=== PATIENT | male | born 1940 | race Caucasian/White ===

== ENCOUNTER → 2017-04-16 | Outpatient (CLI) | payer MEDICARE, OTHER | LOC: M WUC 13:35 | DX: S80.12XA Contusion of left lower leg, initial encounter (principal); S90.02XA Contusion of left ankle, initial encounter; X58.XXXA Exposure to other specified factors, initial encounter; Y92.9 Unspecified place or not applicable | CPT/HCPCS: 73590 ==

== ENCOUNTER 2017-09-22 09:57 | Inpatient (IN) | payer MEDICARE, OTHER ==
[2017-09-22] MEDS: DEXTROSE 50% 50 ML SYRINGE IV ×4 (10:23→11:49)
[2017-09-22] MEDS: fentaNYL 100 MCG/2 ML INJECTION (J3010) IV ×4 (10:36→11:29)
[2017-09-22] MEDS: NS 1,000 ML IV ×2 (10:36)
[2017-09-22 10:56] LABS: HEMATOCRIT 39.6 % (42.0-52.0); HEMOGLOBIN 13.4 g/dl (13.5-17.5); MEAN CORPUSCULAR HEMOGLOBIN 31.2 pg (27.0-33.0); MEAN CORPUSCULAR HGB CONC 33.8 g/dl (32.0-36.5); MEAN CORPUSCULAR VOLUME 92.1 fl (80.0-96.0); PLATELET COUNT, AUTOMATED 179 10^3/uL (150-450); RED CELL DISTRIBUTION WIDTH 12.8 % (11.5-14.5); WHITE BLOOD COUNT 15.2 10^3/uL (4.0-10.0)
[2017-09-22 11:02] LABS: ANION GAP 9 MEQ/L (8-16); BLOOD UREA NITROGEN 25 MG/DL (7-18); CALCIUM LEVEL 9.1 MG/DL (8.8-10.2); CARBON DIOXIDE LEVEL 27 MEQ/L (21-32); CHLORIDE LEVEL 112 MEQ/L (98-107); CK-MB VALUE MASS 3.1 NG/ML (<3.6); CPK CREATINE PHOSPHOKINASE 88 U/L (39-308); CREATININE FOR GFR 2.02 MG/DL (0.70-1.30); GLOMERULAR FILTRATION RATE 34.3 (>42); GLUCOSE, FASTING 44 MG/DL (70-100); MB/CK RELATIVE INDEX 3.52 (< OR =4); POTASSIUM SERUM 3.3 MEQ/L (3.5-5.1); SODIUM LEVEL 148 MEQ/L (136-145); TROPONIN I < 0.02 NG/ML (< 0.10)
[2017-09-22 11:09] LABS: INR 1.65; PROTHROMBIN TIME 19.8 SECONDS (12.1-14.4)
[2017-09-22 11:10] LABS: PARTIAL THROMBOPLASTIN TIME 38.8 SECONDS (25.4-37.6)
[2017-09-22] MEDS ORDERED: MIDAZOLAM INJ 5 MG/ML VIAL (J2250) As Ordered ×2 (11:18)
[2017-09-22] MEDS ORDERED: MIDAZOLAM INJ 2 MG/2 ML VIAL (J2250) As Ordered ×8 (11:20→14:10)
[2017-09-22] MEDS: MIDAZOLAM INJ 2 MG/2 ML VIAL (J2250) IV ×4 (11:29→11:34)
[2017-09-22] MEDS: ceFAZolin SOD 1 GM in D5W MINI-BAG PLUS 50 ML IV (11:45)
[2017-09-22 11:51] LABS: BEDSIDE GLUCOSE 56 MG/DL (83-110)
[2017-09-22] MEDS: D5W/0.45% SODIUM CHLORIDE 1,000 ML IV ×2 (11:58)
[2017-09-22] MEDS ORDERED: HumaLOG INSULIN (NovoLOG) PER UNIT SC ×2 (12:00)
[2017-09-22] MEDS ORDERED: DIGOXIN INJ 0.5 MG/2 ML AMP (J1160) IV ×2 (12:30)
[2017-09-22] MEDS ORDERED: KCL 20MEQ IN D5/0.45NS 1000ML 1,000 ML IV (13:00)
[2017-09-22 13:02] LABS: BEDSIDE GLUCOSE 150 MG/DL (83-110)
[2017-09-22] MEDS ORDERED: DEXTROSE 50% 50 ML SYRINGE IV ×2 (13:15)
[2017-09-22] MEDS ORDERED: GLUCAGON FOR INJ 1 MG VIAL (J1610) SC ×2 (13:15)
[2017-09-22] MEDS ORDERED: ACETAMINOPHEN TAB 650MG DOSE (2X325MG) PO ×2 (13:15)
[2017-09-22] MEDS ORDERED: ONDANSETRON 4MG/2ML VIAL (J2405) IV ×4 (13:15→16:30)
[2017-09-22] MEDS ORDERED: PERCOCET 5MG/325MG TAB PO ×2 (13:15)
[2017-09-22] MEDS ORDERED: MORPHINE 4 MG/ML 1ML VIAL/SYRINGE (J2270) IV ×4 (13:15→18:15)
[2017-09-22] MEDS ORDERED: POLYVINYL ALCOHOL OPHTH SOLN 15 ML(LIQUITEARS) OU ×2 (13:15)
[2017-09-22] MEDS ORDERED: GLUCOSE 4 GM CHEW TABLET PO ×2 (13:15)
[2017-09-22] MEDS: KCL 10MEQ/100ML SWI (KRUN) 10 MEQ in APPROPRIATE DILUENT 1 EA IV ×2 (14:00→15:00)
[2017-09-22 14:01] LABS: MAGNESIUM LEVEL 1.6 MG/DL (1.8-2.4)
[2017-09-22] MEDS: idaruCIZUmab 2.5 GM in APPROPRIATE DILUENT 1 EA IV ×2 (14:05→16:19)
[2017-09-22] MEDS ORDERED: fentaNYL 100 MCG/2 ML INJECTION (J3010) As Ordered ×2 (14:09)
[2017-09-22] MEDS ORDERED: LIDOCAINE 2% INJ 100 MG/5 ML SDV (FOR ANES.) As Ordered ×2 (14:09)
[2017-09-22] MEDS ORDERED: PROPOFOL 200 MG/20 ML VIAL As Ordered ×2 (14:09)
[2017-09-22 14:27] LABS: ESTIMATED AVERAGE GLUCOSE 154 MG/DL (60-110)
[2017-09-22 14:29] LABS: FREE THYROXINE INDEX 2.2 % (1.4-3.8); T UPTAKE 34 % (33-40); THYROID STIMULATING HORMONE 0.928 uIU/ML (0.358-3.740); THYROXINE (T4) 6.4 UG/DL (4.5-12.0)
[2017-09-22] MEDS: ceFAZolin 1GM INJ (J0690 PER 500MG) As Ordered ×4 (14:41)
[2017-09-22] MEDS ORDERED: ePHEDrine SULFATE 25 MG/5 ML(5MG/ML) SYRINGE As Ordered ×2 (15:02)
[2017-09-22] MEDS ORDERED: ONDANSETRON 4MG/2ML VIAL (J2405) As Ordered ×2 (15:13)
[2017-09-22] MEDS ORDERED: dexameTHASONE 4 MG/ML 1ML VIAL (J1100) As Ordered ×4 (15:13)
[2017-09-22 16:00] LABS: BEDSIDE GLUCOSE 234 MG/DL (83-110)
[2017-09-22] MEDS ORDERED: METOCLOPRAMIDE INJ 10MG/2ML VIAL (J2765) IV ×2 (16:30)
[2017-09-22] MEDS: LR 1,000 ML IV ×2 (16:30)
[2017-09-22] MEDS ORDERED: fentaNYL 100 MCG/2 ML INJECTION (J3010) IV ×2 (16:30)
[2017-09-22] MEDS ORDERED: MEPERIDINE INJ 25 MG/ML VIAL (J2175) IV ×2 (16:30)
[2017-09-22 16:39] LABS: BEDSIDE GLUCOSE 186 MG/DL (83-110)
[2017-09-22 16:54] LABS: BEDSIDE GLUCOSE 199 MG/DL (83-110)
[2017-09-22 16:58] LABS: CPK CREATINE PHOSPHOKINASE 260 U/L (39-308); TROPONIN I 0.02 NG/ML (< 0.10)
[2017-09-22 16:59] LABS: CK-MB VALUE MASS 6.6 NG/ML (<3.6); MB/CK RELATIVE INDEX 2.53 (< OR =4)
[2017-09-22] MEDS: PERCOCET 5MG/325MG TAB PO ×2 (17:00)
[2017-09-22] MEDS: HumuLIN R (REGULAR) INSULIN (NovoLIN R) **100U/ML** PER UNIT SC ×2 (17:00)
[2017-09-22 18:00] LABS: BEDSIDE GLUCOSE 183 MG/DL (83-110)
[2017-09-22] MEDS ORDERED: NORCO, ANEXSIA 5/325MG TABLET (HYDROcodone/ACETAMINOPHEN) PO ×2 (18:15)
[2017-09-22] MEDS: LORATADINE 10 MG TAB PO ×2 (18:38)
[2017-09-22] MEDS: POTASSIUM CHLORIDE 10 MEQ SR TABLET PO ×2 (18:38)
[2017-09-22] MEDS: OMEPRAZOLE 20 MG CAP PO ×2 (18:38)
[2017-09-22] MEDS: MULTIVITAMINS/MINERALS THERAP 1 TAB PO ×2 (18:39)
[2017-09-22] MEDS: ATORVASTATIN 20 MG TAB PO ×2 (18:39)
[2017-09-22] MEDS: DONEPEZIL 5 MG TAB PO ×2 (18:40)
[2017-09-22] MEDS: MAG SULF 1GM/100ML (MAG RUN) 1 GM in APPROPRIATE DILUENT 1 EA IV (19:55)
[2017-09-22] MEDS: HumaLOG INSULIN (NovoLOG) PER UNIT SC ×2 (21:00)
[2017-09-22] MEDS: SENOKOT S TAB PO ×2 (21:30)
[2017-09-22] MEDS: METOPROLOL TART 25 MG TABLET PO ×2 (21:31)
[2017-09-22] MEDS: FERROUS SULFATE 325MG TAB PO ×2 (21:31)
[2017-09-22] MEDS: SERTRALINE 100 MG TAB PO ×2 (21:31)
[2017-09-22] MEDS: traZODone 50 MG TAB PO ×2 (21:31)
[2017-09-22 21:40] LABS: BEDSIDE GLUCOSE 306 MG/DL (83-110)
[2017-09-22 23:09] LABS: CPK CREATINE PHOSPHOKINASE 396 U/L (39-308); MB/CK RELATIVE INDEX 2.02 (< OR =4); TROPONIN I < 0.02 NG/ML (< 0.10)
[2017-09-22 23:43] LABS: BEDSIDE GLUCOSE 248 MG/DL (83-110)
[2017-09-23] MEDS: NORCO, ANEXSIA 5/325MG TABLET (HYDROcodone/ACETAMINOPHEN) PO ×2 (02:12)
[2017-09-23 03:57] LABS: OSMOLALITY URINE 625 MOSM/KG (500-800)
[2017-09-23 04:01] LABS: AMORPHOUS SEDIMENT RFX SMALL (NEGATIVE); KETONE, URINE AUTO RFX NEGATIVE (NEGATIVE); LEUKOCYTE ESTERASE UR AUTO RFX NEGATIVE (NEGATIVE); MUCUS, URINE RFX SMALL (NEGATIVE); NITRITE, URINE AUTO RFX NEGATIVE (NEGATIVE); RBC, URINE AUTO RFX 1 /HPF (0-3); SPECIFIC GRAVITY UR AUTO RFX 1.016 (1.002-1.035); SQUAM EPITHELIAL CELL UR AURFX 0 /HPF (0-6); WBC, URINE AUTO RFX 1 /HPF (0-3)
[2017-09-23 04:15] LABS: CHLORIDE,RANDOM URINE 152 MEQ/L; POTASSIUM RANDOM URINE 64.8 MEQ/L; SODIUM,RANDOM URINE 113 MEQ/L; TOTAL PROTEIN,RANDOM URINE 145.5 MG/DL (0.0-12.0)
[2017-09-23 06:11] LABS: CK-MB VALUE MASS 6.9 NG/ML (<3.6); CPK CREATINE PHOSPHOKINASE 355 U/L (39-308); MB/CK RELATIVE INDEX 1.94 (< OR =4); TROPONIN I < 0.02 NG/ML (< 0.10)
[2017-09-23 07:30] LABS: BEDSIDE GLUCOSE 177 MG/DL (83-110)
[2017-09-23] MEDS: SENOKOT S TAB PO ×2 (08:29)
[2017-09-23] MEDS: DONEPEZIL 5 MG TAB PO ×2 (08:29)
[2017-09-23] MEDS: ATORVASTATIN 20 MG TAB PO ×2 (08:29)
[2017-09-23] MEDS: HumaLOG INSULIN (NovoLOG) PER UNIT SC ×6 (08:29→21:00)
[2017-09-23] MEDS: OMEPRAZOLE 20 MG CAP PO ×2 (08:30)
[2017-09-23] MEDS: MULTIVITAMINS/MINERALS THERAP 1 TAB PO ×2 (08:30)
[2017-09-23] MEDS: FERROUS SULFATE 325MG TAB PO ×4 (08:30→20:29)
[2017-09-23] MEDS: METOPROLOL TART 25 MG TABLET PO ×4 (08:30→20:29)
[2017-09-23] MEDS: SERTRALINE 100 MG TAB PO ×4 (08:30→20:28)
[2017-09-23] MEDS: LORATADINE 10 MG TAB PO ×2 (08:30)
[2017-09-23] MEDS ORDERED: LORATADINE 10 MG TAB PO ×2 (09:00)
[2017-09-23] MEDS ORDERED: ATORVASTATIN 20 MG TAB PO ×2 (09:00)
[2017-09-23] MEDS ORDERED: DABIGATRAN ETEXILATE 75 MG CAP (PRADAXA) PO ×2 (09:00)
[2017-09-23] MEDS ORDERED: DONEPEZIL 5 MG TAB PO ×2 (09:00)
[2017-09-23] MEDS ORDERED: MULTIVITAMINS/MINERALS THERAP 1 TAB PO ×2 (09:00)
[2017-09-23 10:02] LABS: ANION GAP 9 MEQ/L (8-16); BLOOD UREA NITROGEN 24 MG/DL (7-18); CALCIUM LEVEL 8.1 MG/DL (8.8-10.2); CARBON DIOXIDE LEVEL 24 MEQ/L (21-32); CHLORIDE LEVEL 105 MEQ/L (98-107); CREATININE FOR GFR 2.06 MG/DL (0.70-1.30); GLOMERULAR FILTRATION RATE 33.5 (>42); GLUCOSE, FASTING 185 MG/DL (70-100); MAGNESIUM LEVEL 1.8 MG/DL (1.8-2.4); POTASSIUM SERUM 5.1 MEQ/L (3.5-5.1); SODIUM LEVEL 138 MEQ/L (136-145)
[2017-09-23 11:28] LABS: BEDSIDE GLUCOSE 186 MG/DL (83-110)
[2017-09-23 16:46] LABS: BEDSIDE GLUCOSE 203 MG/DL (83-110)
[2017-09-23] MEDS ORDERED: ONDANSETRON 4 MG TAB (S0181) PO ×2 (18:45)
[2017-09-23] MEDS ORDERED: POLYVINYL ALCOHOL OPHTH SOLN 15 ML(LIQUITEARS) OU ×2 (18:45)
[2017-09-23] MEDS ORDERED: GLUCAGON FOR INJ 1 MG VIAL (J1610) SC ×2 (18:45)
[2017-09-23] MEDS ORDERED: GLUCOSE 4 GM CHEW TABLET PO ×2 (18:45)
[2017-09-23] MEDS ORDERED: DEXTROSE 50% 50 ML SYRINGE IV ×2 (18:45)
[2017-09-23] MEDS ORDERED: SENNA 8.6 MG TAB (SENOKOT) PO ×2 (18:45)
[2017-09-23] MEDS: ACETAMINOPHEN TAB 650MG DOSE (2X325MG) PO ×2 (19:00)
[2017-09-23] MEDS: DABIGATRAN ETEXILATE 75 MG CAP (PRADAXA) PO ×2 (20:28)
[2017-09-23 21:07] LABS: BEDSIDE GLUCOSE 247 MG/DL (83-110)
[2017-09-23] MEDS ORDERED: traMADol 50 MG TAB PO ×2 (21:45)
[2017-09-23] MEDS: traMADol 50 MG TAB PO ×2 (22:04)
[2017-09-24 04:57] LABS: HEMATOCRIT 33.4 % (42.0-52.0); MEAN CORPUSCULAR HEMOGLOBIN 31.8 pg (27.0-33.0); MEAN CORPUSCULAR HGB CONC 34.1 g/dl (32.0-36.5); MEAN CORPUSCULAR VOLUME 93.3 fl (80.0-96.0); PLATELET COUNT, AUTOMATED 104 10^3/uL (150-450); RED BLOOD COUNT 3.58 10^6/uL (4.30-6.10); RED CELL DISTRIBUTION WIDTH 12.4 % (11.5-14.5); WHITE BLOOD COUNT 9.1 10^3/uL (4.0-10.0)
[2017-09-24 05:13] LABS: ANION GAP 5 MEQ/L (8-16); BLOOD UREA NITROGEN 28 MG/DL (7-18); CALCIUM LEVEL 8.4 MG/DL (8.8-10.2); CARBON DIOXIDE LEVEL 29 MEQ/L (21-32); CHLORIDE LEVEL 106 MEQ/L (98-107); CREATININE FOR GFR 2.07 MG/DL (0.70-1.30); GLOMERULAR FILTRATION RATE 33.3 (>42); GLUCOSE, FASTING 185 MG/DL (70-100); POTASSIUM SERUM 4.8 MEQ/L (3.5-5.1); SODIUM LEVEL 140 MEQ/L (136-145)
[2017-09-24 05:16] LABS: HEMOGLOBIN 11.4 g/dl (13.5-17.5)
[2017-09-24] MEDS: HumaLOG INSULIN (NovoLOG) PER UNIT SC ×2 (08:30)
[2017-09-24] MEDS: LORATADINE 10 MG TAB PO ×2 (08:31)
[2017-09-24] MEDS: ATORVASTATIN 20 MG TAB PO ×2 (08:31)
[2017-09-24] MEDS: SERTRALINE 100 MG TAB PO ×2 (08:31)
[2017-09-24] MEDS: DONEPEZIL 5 MG TAB PO ×2 (08:32)
[2017-09-24] MEDS: FERROUS SULFATE 325MG TAB PO ×2 (08:32)
[2017-09-24] MEDS: OMEPRAZOLE 20 MG CAP PO ×2 (08:32)
[2017-09-24] MEDS: MULTIVITAMINS/MINERALS THERAP 1 TAB PO ×2 (08:32)
[2017-09-24] MEDS: DABIGATRAN ETEXILATE 75 MG CAP (PRADAXA) PO ×2 (08:32)
[2017-09-24] MEDS: METOPROLOL TART 25 MG TABLET PO ×2 (08:33)
[2017-09-24] MEDS ORDERED: SLF 3 ML SYR IV ×4 (08:45→14:00)
[2017-09-24] MEDS: traMADol 50 MG TAB PO ×2 (10:37)
[2017-09-24 12:09] LABS: BEDSIDE GLUCOSE 177 MG/DL (83-110)
[2017-09-24 13:00] LABS: BEDSIDE GLUCOSE 208 MG/DL (83-110)
[2017-09-28 00:06] LABS: "\\\"INSULIN \\\"\\\"PRO\\\"\\\" LEVEL\\\"" 7.1 pmol/L (0.0-10.0)
== END 2017-09-24 12:00 | DRG 494 ==
LOC: M SDC 09-23 16:14 → M PCU 09-23 16:19 → M ED 09:57 → M SDC 12:18 → M PCU 17:35
PROC: 0QSJ04Z Reposition Right Fibula with Internal Fixation Device, Open Approach (ICD-10-PCS; principal; 2017-09-22 12:10)
DX: S82.431B Displaced oblique fracture of shaft of right fibula, initial encounter for open fracture type I or II (principal); I48.0 Paroxysmal atrial fibrillation; E11.22 Type 2 diabetes mellitus with diabetic chronic kidney disease; F43.10 Post-traumatic stress disorder, unspecified; N18.3 Chronic kidney disease, stage 3 (moderate); W17.2XXA Fall into hole, initial encounter; Y92.017 Garden or yard in single-family (private) house as the place of occurrence of the external cause; I50.9 Heart failure, unspecified; Y93.K1 Activity, walking an animal; F03.90 Unspecified dementia, unspecified severity, without behavioral disturbance, psychotic disturbance, mood disturbance, and anxiety; K21.9 Gastro-esophageal reflux disease without esophagitis; E11.649 Type 2 diabetes mellitus with hypoglycemia without coma; Z85.46 Personal history of malignant neoplasm of prostate; Z86.73 Personal history of transient ischemic attack (TIA), and cerebral infarction without residual deficits; Z92.3 Personal history of irradiation; Z87.891 Personal history of nicotine dependence; Z79.4 Long term (current) use of insulin; Z79.899 Other long term (current) drug therapy; Z91.012 Allergy to eggs; Z79.01 Long term (current) use of anticoagulants

== ENCOUNTER 2017-09-24 12:00 | Inpatient (IN) | payer MEDICARE, OTHER ==
[~2017-09-24 12:00] MED LIST: BISACODYL 10 MG SUPP PR; BISACODYL 5 MG TAB PO; DEXTROSE 50% 50 ML SYRINGE IV; FLEET ENEMA PR; GLUCAGON FOR INJ 1 MG VIAL (J1610) SC; GLUCOSE 4 GM CHEW TABLET PO; MOM 30ML SUSPENSION UDC PO; ONDANSETRON 4 MG TAB (S0181) PO; POLYVINYL ALCOHOL OPHTH SOLN 15 ML(LIQUITEARS) OU
[2017-09-24] MEDS: HumaLOG INSULIN (NovoLOG) PER UNIT SC ×3 (14:52→21:00)
[2017-09-24] MEDS: LIDOCAINE 5% (LIDODERM) PATCH TD (14:53)
[2017-09-24 16:36] LABS: BEDSIDE GLUCOSE 188 MG/DL (83-110)
[2017-09-24] MEDS: SENNA 8.6 MG TAB (SENOKOT) PO (20:10)
[2017-09-24] MEDS: OMEGA-3 1050MG CAPSULE PO (20:11)
[2017-09-24] MEDS: traMADol 50 MG TAB PO (20:11)
[2017-09-24] MEDS: SERTRALINE 100 MG TAB PO (20:11)
[2017-09-24] MEDS: FERROUS SULFATE 325MG TAB PO (20:12)
[2017-09-24 20:48] LABS: BEDSIDE GLUCOSE 232 MG/DL (83-110)
[2017-09-24] MEDS: **NOTE PATIENT COMMENT** MISC XX (21:00)
[2017-09-24] MEDS: DABIGATRAN ETEXILATE 75 MG CAP (PRADAXA) PO (22:39)
[2017-09-24] MEDS: ANALGESIC BALM CRM 120 GM TOP (22:42)
[2017-09-24] MEDS: ACETAMINOPHEN TAB 650MG DOSE (2X325MG) PO (22:42)
[2017-09-24] MEDS: BACITRACIN OINT 30GM TOP (22:43)
[2017-09-25] MEDS: traMADol 50 MG TAB PO (06:42)
[2017-09-25 06:45] LABS: BASO % 0.3 % (0.0-1.0); EOS # 0.2 10^3/uL (0.0-0.50); EOS % 3.3 % (0.0-3.0); HEMATOCRIT 34.4 % (42.0-52.0); HEMOGLOBIN 11.6 g/dl (13.5-17.5); IMMATURE GRANULOCYTE % 1.1 % (0-3.0); LYMPH % 14.1 % (24.0-44.0); MEAN CORPUSCULAR HEMOGLOBIN 31.2 pg (27.0-33.0); MEAN CORPUSCULAR HGB CONC 33.7 g/dl (32.0-36.5); MEAN CORPUSCULAR VOLUME 92.5 fl (80.0-96.0); MONO # 0.8 10^3/uL (0.0-0.8); MONO % 11.3 % (0.0-5.0); NEUTROPHILS # 5.1 10^3/uL (1.8-7.7); NEUTROPHILS % 69.9 % (36.0-66.0); PLATELET COUNT, AUTOMATED 101 10^3/uL (150-450); RED BLOOD COUNT 3.72 10^6/uL (4.30-6.10); RED CELL DISTRIBUTION WIDTH 12.4 % (11.5-14.5); WHITE BLOOD COUNT 7.4 10^3/uL (4.0-10.0)
[2017-09-25 06:46] LABS: BEDSIDE GLUCOSE 155 MG/DL (83-110)
[2017-09-25 07:11] LABS: ALBUMIN 2.7 GM/DL (3.2-5.2); ALBUMIN/GLOBULIN RATIO 0.77 (1.00-1.93); ALKALINE PHOSPHATASE 45 U/L (45-117); ALT/SGPT 14 U/L (12-78); ANION GAP 5 MEQ/L (8-16); AST/SGOT 21 U/L (7-37); BILIRUBIN,TOTAL 0.7 MG/DL (0.2-1.0); BLOOD UREA NITROGEN 30 MG/DL (7-18); CALCIUM LEVEL 8.3 MG/DL (8.8-10.2); CARBON DIOXIDE LEVEL 30 MEQ/L (21-32); CHLORIDE LEVEL 104 MEQ/L (98-107); CREATININE FOR GFR 1.78 MG/DL (0.70-1.30); GLOMERULAR FILTRATION RATE 39.7 (>42); GLUCOSE, FASTING 152 MG/DL (70-100); POTASSIUM SERUM 4.5 MEQ/L (3.5-5.1); SODIUM LEVEL 139 MEQ/L (136-145); TOTAL PROTEIN 6.2 GM/DL (6.4-8.2)
[2017-09-25] MEDS: HumaLOG INSULIN (NovoLOG) PER UNIT SC ×4 (08:08→20:59)
[2017-09-25] MEDS: MIRALAX *UNIT DOSE* 17GM PACKET PO (08:08)
[2017-09-25] MEDS: ATORVASTATIN 20 MG TAB PO (08:08)
[2017-09-25] MEDS: DONEPEZIL 5 MG TAB PO (08:08)
[2017-09-25] MEDS: LIDOCAINE 5% (LIDODERM) PATCH TD (08:08)
[2017-09-25] MEDS: DABIGATRAN ETEXILATE 75 MG CAP (PRADAXA) PO ×2 (08:08→20:58)
[2017-09-25] MEDS: MULTIVITAMINS/MINERALS THERAP 1 TAB PO (08:09)
[2017-09-25] MEDS: ANALGESIC BALM CRM 120 GM TOP ×2 (08:09→21:01)
[2017-09-25] MEDS: OMEGA-3 1050MG CAPSULE PO ×2 (08:09→20:58)
[2017-09-25] MEDS: BACITRACIN OINT 30GM TOP ×2 (08:09→21:01)
[2017-09-25] MEDS: SERTRALINE 100 MG TAB PO ×2 (08:09→20:58)
[2017-09-25] MEDS: LORATADINE 10 MG TAB PO (08:09)
[2017-09-25] MEDS: METOPROLOL SUCC (TopROL XL) 50MG **XL** TAB PO (08:09)
[2017-09-25] MEDS: FERROUS SULFATE 325MG TAB PO ×2 (08:09→20:58)
[2017-09-25] MEDS: OMEPRAZOLE 20 MG CAP PO (08:09)
[2017-09-25 11:38] LABS: BEDSIDE GLUCOSE 199 MG/DL (83-110)
[2017-09-25 16:22] LABS: BEDSIDE GLUCOSE 246 MG/DL (83-110)
[2017-09-25 19:37] LABS: BEDSIDE GLUCOSE 219 MG/DL (83-110)
[2017-09-25] MEDS: SENNA 8.6 MG TAB (SENOKOT) PO (20:58)
[2017-09-25] MEDS: **NOTE PATIENT COMMENT** MISC XX (21:01)
[2017-09-26 05:48] LABS: BEDSIDE GLUCOSE 214 MG/DL (83-110)
[2017-09-26] MEDS: MULTIVITAMINS/MINERALS THERAP 1 TAB PO (08:25)
[2017-09-26] MEDS: LIDOCAINE 5% (LIDODERM) PATCH TD (08:25)
[2017-09-26] MEDS: MIRALAX *UNIT DOSE* 17GM PACKET PO (08:25)
[2017-09-26] MEDS: ATORVASTATIN 20 MG TAB PO (08:25)
[2017-09-26] MEDS: HumaLOG INSULIN (NovoLOG) PER UNIT SC ×4 (08:25→21:00)
[2017-09-26] MEDS: METOPROLOL SUCC (TopROL XL) 50MG **XL** TAB PO (08:26)
[2017-09-26] MEDS: DABIGATRAN ETEXILATE 75 MG CAP (PRADAXA) PO ×2 (08:26→20:18)
[2017-09-26] MEDS: OMEPRAZOLE 20 MG CAP PO (08:26)
[2017-09-26] MEDS: DONEPEZIL 5 MG TAB PO (08:26)
[2017-09-26] MEDS: OMEGA-3 1050MG CAPSULE PO ×2 (08:26→20:17)
[2017-09-26] MEDS: FERROUS SULFATE 325MG TAB PO ×2 (08:26→20:18)
[2017-09-26] MEDS: SERTRALINE 100 MG TAB PO ×2 (08:26→20:18)
[2017-09-26] MEDS: ANALGESIC BALM CRM 120 GM TOP ×2 (08:27→20:19)
[2017-09-26] MEDS: BACITRACIN OINT 30GM TOP ×2 (08:27→20:20)
[2017-09-26] MEDS: LORATADINE 10 MG TAB PO (08:28)
[2017-09-26 11:37] LABS: BEDSIDE GLUCOSE 214 MG/DL (83-110)
[2017-09-26 16:25] LABS: BEDSIDE GLUCOSE 208 MG/DL (83-110)
[2017-09-26 20:00] LABS: BEDSIDE GLUCOSE 245 MG/DL (83-110)
[2017-09-26] MEDS: ACETAMINOPHEN TAB 650MG DOSE (2X325MG) PO (20:18)
[2017-09-26] MEDS: SENNA 8.6 MG TAB (SENOKOT) PO (20:18)
[2017-09-26] MEDS: **NOTE PATIENT COMMENT** MISC XX (20:20)
[2017-09-27] MEDS: ACETAMINOPHEN TAB 650MG DOSE (2X325MG) PO ×2 (06:22→21:02)
[2017-09-27 06:32] LABS: BEDSIDE GLUCOSE 214 MG/DL (83-110)
[2017-09-27] MEDS: MIRALAX *UNIT DOSE* 17GM PACKET PO (08:58)
[2017-09-27] MEDS: FERROUS SULFATE 325MG TAB PO ×2 (08:59→21:03)
[2017-09-27] MEDS: OMEPRAZOLE 20 MG CAP PO (08:59)
[2017-09-27] MEDS: SERTRALINE 100 MG TAB PO ×2 (08:59→21:02)
[2017-09-27] MEDS: ATORVASTATIN 20 MG TAB PO (08:59)
[2017-09-27] MEDS: DABIGATRAN ETEXILATE 75 MG CAP (PRADAXA) PO ×2 (08:59→21:03)
[2017-09-27] MEDS: LORATADINE 10 MG TAB PO (08:59)
[2017-09-27] MEDS: OMEGA-3 1050MG CAPSULE PO ×2 (08:59→21:03)
[2017-09-27] MEDS: MULTIVITAMINS/MINERALS THERAP 1 TAB PO (08:59)
[2017-09-27] MEDS: METOPROLOL SUCC (TopROL XL) 50MG **XL** TAB PO (09:00)
[2017-09-27] MEDS: DONEPEZIL 5 MG TAB PO (09:00)
[2017-09-27] MEDS: LIDOCAINE 5% (LIDODERM) PATCH TD (09:00)
[2017-09-27] MEDS: HumaLOG INSULIN (NovoLOG) PER UNIT SC ×4 (09:01→21:04)
[2017-09-27] MEDS: ANALGESIC BALM CRM 120 GM TOP ×2 (09:02→21:05)
[2017-09-27] MEDS: BACITRACIN OINT 30GM TOP ×2 (09:02→21:05)
[2017-09-27 11:58] LABS: BEDSIDE GLUCOSE 262 MG/DL (83-110)
[2017-09-27 16:28] LABS: BEDSIDE GLUCOSE 245 MG/DL (83-110)
[2017-09-27 20:44] LABS: BEDSIDE GLUCOSE 319 MG/DL (83-110)
[2017-09-27] MEDS: SENNA 8.6 MG TAB (SENOKOT) PO (21:02)
[2017-09-27] MEDS: LEVEMIR (INSULIN DETEMIR) 1 UNITS/0.01ML SC (21:04)
[2017-09-27] MEDS: **NOTE PATIENT COMMENT** MISC XX (21:05)
[2017-09-28] MEDS: traMADol 50 MG TAB PO (02:33)
[2017-09-28] MEDS: ACETAMINOPHEN TAB 650MG DOSE (2X325MG) PO ×2 (06:34→21:24)
[2017-09-28 06:37] LABS: BEDSIDE GLUCOSE 223 MG/DL (83-110)
[2017-09-28 08:28] LABS: HEMATOCRIT 35.4 % (42.0-52.0); HEMOGLOBIN 12.2 g/dl (13.5-17.5); MEAN CORPUSCULAR HEMOGLOBIN 31.4 pg (27.0-33.0); MEAN CORPUSCULAR HGB CONC 34.5 g/dl (32.0-36.5); MEAN CORPUSCULAR VOLUME 91.2 fl (80.0-96.0); PLATELET COUNT, AUTOMATED 150 10^3/uL (150-450); RED BLOOD COUNT 3.88 10^6/uL (4.30-6.10); RED CELL DISTRIBUTION WIDTH 12.4 % (11.5-14.5); WHITE BLOOD COUNT 8.8 10^3/uL (4.0-10.0)
[2017-09-28] MEDS: MULTIVITAMINS/MINERALS THERAP 1 TAB PO (08:40)
[2017-09-28] MEDS: DABIGATRAN ETEXILATE 75 MG CAP (PRADAXA) PO ×2 (08:40→21:25)
[2017-09-28] MEDS: LORATADINE 10 MG TAB PO (08:41)
[2017-09-28] MEDS: OMEPRAZOLE 20 MG CAP PO (08:41)
[2017-09-28] MEDS: OMEGA-3 1050MG CAPSULE PO ×2 (08:41→21:25)
[2017-09-28] MEDS: SERTRALINE 100 MG TAB PO ×2 (08:41→21:25)
[2017-09-28] MEDS: FERROUS SULFATE 325MG TAB PO ×2 (08:41→21:25)
[2017-09-28] MEDS: DONEPEZIL 5 MG TAB PO (08:41)
[2017-09-28] MEDS: ATORVASTATIN 20 MG TAB PO (08:41)
[2017-09-28] MEDS: HumaLOG INSULIN (NovoLOG) PER UNIT SC ×4 (08:42→21:26)
[2017-09-28] MEDS: METOPROLOL SUCC (TopROL XL) 50MG **XL** TAB PO (08:42)
[2017-09-28 08:58] LABS: ALBUMIN 2.9 GM/DL (3.2-5.2); ALBUMIN/GLOBULIN RATIO 0.78 (1.00-1.93); ALKALINE PHOSPHATASE 55 U/L (45-117); ALT/SGPT 34 U/L (12-78); ANION GAP 11 MEQ/L (8-16); AST/SGOT 35 U/L (7-37); BILIRUBIN,TOTAL 0.9 MG/DL (0.2-1.0); BLOOD UREA NITROGEN 36 MG/DL (7-18); CALCIUM LEVEL 8.3 MG/DL (8.8-10.2); CARBON DIOXIDE LEVEL 23 MEQ/L (21-32); CHLORIDE LEVEL 105 MEQ/L (98-107); CREATININE FOR GFR 1.87 MG/DL (0.70-1.30); GLOMERULAR FILTRATION RATE 37.5 (>42); GLUCOSE, FASTING 229 MG/DL (70-100); POTASSIUM SERUM 4.5 MEQ/L (3.5-5.1); SODIUM LEVEL 139 MEQ/L (136-145); TOTAL PROTEIN 6.6 GM/DL (6.4-8.2)
[2017-09-28] MEDS: MIRALAX *UNIT DOSE* 17GM PACKET PO (09:00)
[2017-09-28] MEDS: LIDOCAINE 5% (LIDODERM) PATCH TD (09:36)
[2017-09-28] MEDS: ANALGESIC BALM CRM 120 GM TOP ×2 (09:37→21:26)
[2017-09-28] MEDS: BACITRACIN OINT 30GM TOP ×2 (09:37→21:26)
[2017-09-28 11:40] LABS: BEDSIDE GLUCOSE 235 MG/DL (83-110)
[2017-09-28 16:57] LABS: BEDSIDE GLUCOSE 233 MG/DL (83-110)
[2017-09-28 20:08] LABS: BEDSIDE GLUCOSE 280 MG/DL (83-110)
[2017-09-28] MEDS: SENNA 8.6 MG TAB (SENOKOT) PO (21:24)
[2017-09-28] MEDS: LEVEMIR (INSULIN DETEMIR) 1 UNITS/0.01ML SC (21:25)
[2017-09-28] MEDS: **NOTE PATIENT COMMENT** MISC XX (21:26)
[2017-09-29 06:12] LABS: BEDSIDE GLUCOSE 233 MG/DL (83-110)
[2017-09-29] MEDS: BACITRACIN OINT 30GM TOP ×2 (09:00→21:14)
[2017-09-29] MEDS: MIRALAX *UNIT DOSE* 17GM PACKET PO (09:00)
[2017-09-29] MEDS: ANALGESIC BALM CRM 120 GM TOP ×2 (09:00→21:13)
[2017-09-29] MEDS: OMEPRAZOLE 20 MG CAP PO (09:17)
[2017-09-29] MEDS: LIDOCAINE 5% (LIDODERM) PATCH TD (09:17)
[2017-09-29] MEDS: MULTIVITAMINS/MINERALS THERAP 1 TAB PO (09:17)
[2017-09-29] MEDS: DABIGATRAN ETEXILATE 75 MG CAP (PRADAXA) PO ×2 (09:17→21:12)
[2017-09-29] MEDS: FERROUS SULFATE 325MG TAB PO ×2 (09:17→21:13)
[2017-09-29] MEDS: ATORVASTATIN 20 MG TAB PO (09:17)
[2017-09-29] MEDS: LORATADINE 10 MG TAB PO (09:17)
[2017-09-29] MEDS: METOPROLOL SUCC (TopROL XL) 50MG **XL** TAB PO (09:17)
[2017-09-29] MEDS: SERTRALINE 100 MG TAB PO ×2 (09:17→21:13)
[2017-09-29] MEDS: OMEGA-3 1050MG CAPSULE PO ×2 (09:18→21:12)
[2017-09-29] MEDS: DONEPEZIL 5 MG TAB PO (09:18)
[2017-09-29] MEDS: HumaLOG INSULIN (NovoLOG) PER UNIT SC ×4 (09:18→21:11)
[2017-09-29 11:31] LABS: BEDSIDE GLUCOSE 302 MG/DL (83-110)
[2017-09-29 12:50] LABS: HEMATOCRIT 33.3 % (42.0-52.0); HEMOGLOBIN 11.4 g/dl (13.5-17.5); MEAN CORPUSCULAR HEMOGLOBIN 31.1 pg (27.0-33.0); MEAN CORPUSCULAR HGB CONC 34.2 g/dl (32.0-36.5); PLATELET COUNT, AUTOMATED 150 10^3/uL (150-450); RED BLOOD COUNT 3.66 10^6/uL (4.30-6.10); RED CELL DISTRIBUTION WIDTH 12.2 % (11.5-14.5); WHITE BLOOD COUNT 8.7 10^3/uL (4.0-10.0)
[2017-09-29 13:51] LABS: ALBUMIN 2.8 GM/DL (3.2-5.2); ALKALINE PHOSPHATASE 51 U/L (45-117); ALT/SGPT 35 U/L (12-78); ANION GAP 7 MEQ/L (8-16); AST/SGOT 27 U/L (7-37); BILIRUBIN,TOTAL 0.7 MG/DL (0.2-1.0); BLOOD UREA NITROGEN 36 MG/DL (7-18); CALCIUM LEVEL 8.7 MG/DL (8.8-10.2); CARBON DIOXIDE LEVEL 27 MEQ/L (21-32); CHLORIDE LEVEL 106 MEQ/L (98-107); CREATININE FOR GFR 1.99 MG/DL (0.70-1.30); GLOMERULAR FILTRATION RATE 34.9 (>42); GLUCOSE, FASTING 252 MG/DL (70-100); SODIUM LEVEL 140 MEQ/L (136-145); TOTAL PROTEIN 6.3 GM/DL (6.4-8.2)
[2017-09-29 14:01] LABS: POTASSIUM SERUM 5.3 MEQ/L (3.5-5.1)
[2017-09-29 16:38] LABS: BEDSIDE GLUCOSE 187 MG/DL (83-110)
[2017-09-29 17:03] LABS: ANION GAP 7 MEQ/L (8-16); BLOOD UREA NITROGEN 39 MG/DL (7-18); CALCIUM LEVEL 8.3 MG/DL (8.8-10.2); CARBON DIOXIDE LEVEL 27 MEQ/L (21-32); CHLORIDE LEVEL 105 MEQ/L (98-107); CREATININE FOR GFR 1.89 MG/DL (0.70-1.30); GLUCOSE, FASTING 189 MG/DL (70-100); POTASSIUM SERUM 4.6 MEQ/L (3.5-5.1); SODIUM LEVEL 139 MEQ/L (136-145)
[2017-09-29 21:00] LABS: BEDSIDE GLUCOSE 275 MG/DL (83-110)
[2017-09-29] MEDS: SENNA 8.6 MG TAB (SENOKOT) PO (21:00)
[2017-09-29] MEDS: **NOTE PATIENT COMMENT** MISC XX (21:00)
[2017-09-29] MEDS: LEVEMIR (INSULIN DETEMIR) 1 UNITS/0.01ML SC (21:12)
[2017-09-29] MEDS: traMADol 50 MG TAB PO (21:13)
[2017-09-30] MEDS: traMADol 50 MG TAB PO (06:03)
[2017-09-30 06:07] LABS: BEDSIDE GLUCOSE 210 MG/DL (83-110)
[2017-09-30 07:41] LABS: BASO % 0.4 % (0.0-1.0); EOS # 0.2 10^3/uL (0.0-0.50); EOS % 2.2 % (0.0-3.0); HEMATOCRIT 32.5 % (42.0-52.0); HEMOGLOBIN 11.2 g/dl (13.5-17.5); IMMATURE GRANULOCYTE % 1.4 % (0-3.0); LYMPH % 11.9 % (24.0-44.0); MEAN CORPUSCULAR HEMOGLOBIN 31.1 pg (27.0-33.0); MEAN CORPUSCULAR HGB CONC 34.5 g/dl (32.0-36.5); MEAN CORPUSCULAR VOLUME 90.3 fl (80.0-96.0); MONO # 0.7 10^3/uL (0.0-0.8); MONO % 8.7 % (0.0-5.0); NEUTROPHILS # 6.3 10^3/uL (1.8-7.7); NEUTROPHILS % 75.4 % (36.0-66.0); PLATELET COUNT, AUTOMATED 158 10^3/uL (150-450); RED CELL DISTRIBUTION WIDTH 12.1 % (11.5-14.5); WHITE BLOOD COUNT 8.3 10^3/uL (4.0-10.0)
[2017-09-30 07:51] LABS: INR 1.55; PROTHROMBIN TIME 18.8 SECONDS (12.1-14.4)
[2017-09-30] MEDS: HumaLOG INSULIN (NovoLOG) PER UNIT SC ×4 (08:08→21:35)
[2017-09-30 08:09] LABS: ANION GAP 7 MEQ/L (8-16); BLOOD UREA NITROGEN 33 MG/DL (7-18); CALCIUM LEVEL 8.2 MG/DL (8.8-10.2); CARBON DIOXIDE LEVEL 28 MEQ/L (21-32); CHLORIDE LEVEL 102 MEQ/L (98-107); CREATININE FOR GFR 1.77 MG/DL (0.70-1.30); GLOMERULAR FILTRATION RATE 39.9 (>42); GLUCOSE, FASTING 203 MG/DL (70-100); MAGNESIUM LEVEL 2.1 MG/DL (1.8-2.4); POTASSIUM SERUM 4.5 MEQ/L (3.5-5.1); SODIUM LEVEL 137 MEQ/L (136-145)
[2017-09-30] MEDS: DONEPEZIL 5 MG TAB PO (08:09)
[2017-09-30] MEDS: MULTIVITAMINS/MINERALS THERAP 1 TAB PO (08:09)
[2017-09-30] MEDS: ATORVASTATIN 20 MG TAB PO (08:09)
[2017-09-30] MEDS: SERTRALINE 100 MG TAB PO ×2 (08:09→21:35)
[2017-09-30] MEDS: DABIGATRAN ETEXILATE 75 MG CAP (PRADAXA) PO ×2 (08:09→21:35)
[2017-09-30] MEDS: OMEPRAZOLE 20 MG CAP PO (08:09)
[2017-09-30] MEDS: OMEGA-3 1050MG CAPSULE PO ×2 (08:09→21:35)
[2017-09-30] MEDS: METOPROLOL SUCC (TopROL XL) 50MG **XL** TAB PO (08:10)
[2017-09-30] MEDS: FERROUS SULFATE 325MG TAB PO ×2 (08:10→21:35)
[2017-09-30] MEDS: LORATADINE 10 MG TAB PO (08:10)
[2017-09-30] MEDS: MIRALAX *UNIT DOSE* 17GM PACKET PO (08:10)
[2017-09-30] MEDS: LIDOCAINE 5% (LIDODERM) PATCH TD (08:11)
[2017-09-30] MEDS: ANALGESIC BALM CRM 120 GM TOP ×2 (08:41→21:36)
[2017-09-30] MEDS: BACITRACIN OINT 30GM TOP ×2 (08:42→21:36)
[2017-09-30 09:24] LABS: FOLATE > 24.0 NG/ML (>5.4); VITAMIN B12 LEVEL 462 PG/ML (247-911)
[2017-09-30 09:42] LABS: FERRITIN 312 NG/ML (26-388); IRON (FE) 60 UG/DL (65-175); PERCENT SATURATION 24.8 % (19.7-50.0); TOTAL IRON BINDING CAPACITY 242 UG/DL (250-450)
[2017-09-30 11:16] LABS: BEDSIDE GLUCOSE 329 MG/DL (83-110)
[2017-09-30 16:51] LABS: BEDSIDE GLUCOSE 194 MG/DL (83-110)
[2017-09-30] MEDS ORDERED: BUPIVACAINE HCL 0.5% 30 ML VIAL As Ordered (18:13)
[2017-09-30] MEDS ORDERED: LIDOCAINE 1% SDV INJ 30 ML VIAL As Ordered (18:13)
[2017-09-30] MEDS: SENNA 8.6 MG TAB (SENOKOT) PO (21:00)
[2017-09-30] MEDS: **NOTE PATIENT COMMENT** MISC XX (21:00)
[2017-09-30 21:20] LABS: BEDSIDE GLUCOSE 285 MG/DL (83-110)
[2017-09-30] MEDS: LEVEMIR (INSULIN DETEMIR) 1 UNITS/0.01ML SC (21:35)
[2017-10-01 06:05] LABS: BEDSIDE GLUCOSE 182 MG/DL (83-110)
[2017-10-01 06:51] LABS: HEMATOCRIT 32.1 % (42.0-52.0); HEMOGLOBIN 10.9 g/dl (13.5-17.5); MEAN CORPUSCULAR HEMOGLOBIN 30.5 pg (27.0-33.0); MEAN CORPUSCULAR VOLUME 89.9 fl (80.0-96.0); PLATELET COUNT, AUTOMATED 161 10^3/uL (150-450); RED BLOOD COUNT 3.57 10^6/uL (4.30-6.10); WHITE BLOOD COUNT 7.3 10^3/uL (4.0-10.0)
[2017-10-01 07:22] LABS: ALBUMIN 2.6 GM/DL (3.2-5.2); ALBUMIN/GLOBULIN RATIO 0.68 (1.00-1.93); ALKALINE PHOSPHATASE 52 U/L (45-117); ALT/SGPT 29 U/L (12-78); ANION GAP 7 MEQ/L (8-16); AST/SGOT 26 U/L (7-37); BILIRUBIN,TOTAL 0.8 MG/DL (0.2-1.0); BLOOD UREA NITROGEN 32 MG/DL (7-18); CALCIUM LEVEL 8.3 MG/DL (8.8-10.2); CARBON DIOXIDE LEVEL 28 MEQ/L (21-32); CHLORIDE LEVEL 104 MEQ/L (98-107); CREATININE FOR GFR 1.65 MG/DL (0.70-1.30); GLOMERULAR FILTRATION RATE 43.3 (>42); GLUCOSE, FASTING 196 MG/DL (70-100); POTASSIUM SERUM 4.4 MEQ/L (3.5-5.1); SODIUM LEVEL 139 MEQ/L (136-145); TOTAL PROTEIN 6.4 GM/DL (6.4-8.2)
[2017-10-01] MEDS: HumaLOG INSULIN (NovoLOG) PER UNIT SC (08:55)
[2017-10-01] MEDS: ATORVASTATIN 20 MG TAB PO (08:57)
[2017-10-01] MEDS: OMEGA-3 1050MG CAPSULE PO (08:57)
[2017-10-01] MEDS: OMEPRAZOLE 20 MG CAP PO (08:57)
[2017-10-01] MEDS: SERTRALINE 100 MG TAB PO (08:57)
[2017-10-01] MEDS: METOPROLOL SUCC (TopROL XL) 50MG **XL** TAB PO (08:58)
[2017-10-01] MEDS: FERROUS SULFATE 325MG TAB PO (08:58)
[2017-10-01] MEDS: LORATADINE 10 MG TAB PO (08:58)
[2017-10-01] MEDS: DABIGATRAN ETEXILATE 75 MG CAP (PRADAXA) PO (08:58)
[2017-10-01] MEDS: MULTIVITAMINS/MINERALS THERAP 1 TAB PO (08:58)
[2017-10-01] MEDS: DONEPEZIL 5 MG TAB PO (08:58)
[2017-10-01] MEDS: MIRALAX *UNIT DOSE* 17GM PACKET PO (08:58)
[2017-10-01] MEDS: LIDOCAINE 5% (LIDODERM) PATCH TD (09:00)
[2017-10-01] MEDS: ANALGESIC BALM CRM 120 GM TOP (09:00)
[2017-10-01] MEDS: BACITRACIN OINT 30GM TOP (09:00)
[2017-10-01 11:32] LABS: BEDSIDE GLUCOSE 301 MG/DL (83-110)
== END 2017-10-01 12:55 | disposition home health service (06) | DRG 560 ==
LOC: M PM&R 12:00
PROVIDERS: Physical Medicine & Rehabilitation
DX: S82.431D Displaced oblique fracture of shaft of right fibula, subsequent encounter for closed fracture with routine healing (principal); D62 Acute posthemorrhagic anemia; I48.0 Paroxysmal atrial fibrillation; E11.22 Type 2 diabetes mellitus with diabetic chronic kidney disease; E11.65 Type 2 diabetes mellitus with hyperglycemia; K21.9 Gastro-esophageal reflux disease without esophagitis; F32.9 Major depressive disorder, single episode, unspecified; F03.90 Unspecified dementia, unspecified severity, without behavioral disturbance, psychotic disturbance, mood disturbance, and anxiety; R53.81 Other malaise; E78.5 Hyperlipidemia, unspecified; I50.9 Heart failure, unspecified; F43.10 Post-traumatic stress disorder, unspecified; N18.3 Chronic kidney disease, stage 3 (moderate); Z86.73 Personal history of transient ischemic attack (TIA), and cerebral infarction without residual deficits; Z91.012 Allergy to eggs; Z87.891 Personal history of nicotine dependence; Z79.4 Long term (current) use of insulin; Z79.01 Long term (current) use of anticoagulants; Z79.899 Other long term (current) drug therapy; Z90.49 Acquired absence of other specified parts of digestive tract; W17.2XXD Fall into hole, subsequent encounter; Y92.007 Garden or yard of unspecified non-institutional (private) residence as the place of occurrence of the external cause; Y93.K1 Activity, walking an animal; Z92.3 Personal history of irradiation; Z85.46 Personal history of malignant neoplasm of prostate

== ENCOUNTER → 2017-10-03 | Outpatient (CLI) | payer MEDICARE, OTHER ==
[2017-10-03 11:01] LABS: HEMATOCRIT 35.2 % (42.0-52.0); HEMOGLOBIN 11.8 g/dl (13.5-17.5); MEAN CORPUSCULAR HEMOGLOBIN 30.8 pg (27.0-33.0); MEAN CORPUSCULAR HGB CONC 33.5 g/dl (32.0-36.5); MEAN CORPUSCULAR VOLUME 91.9 fl (80.0-96.0); PLATELET COUNT, AUTOMATED 211 10^3/uL (150-450); RED BLOOD COUNT 3.83 10^6/uL (4.30-6.10); RED CELL DISTRIBUTION WIDTH 12.3 % (11.5-14.5)
== END ==
LOC: M WUC 10:14
DX: D62 Acute posthemorrhagic anemia (principal)
CPT/HCPCS: 85027

== ENCOUNTER 2018-03-30 11:09 | Emergency (ER) | payer MEDICARE, OTHER ==
[~2018-03-30] VITALS: Ht 165.1 cm; Wt 167.0 kg
[~2018-03-30 11:09] MED LIST changes: +ARTI99.0 OU; +Acetaminophen Tab PO; -BISACODYL 10 MG SUPP PR; -BISACODYL 5 MG TAB PO; -DEXTROSE 50% 50 ML SYRINGE IV; +DONE10TA90 PO; +FERR1TAB8 PO; +FISH7.5C PO; -FLEET ENEMA PR; -GLUCAGON FOR INJ 1 MG VIAL (J1610) SC; -GLUCOSE 4 GM CHEW TABLET PO; +INSUH10VL SC; +INSULANT SC; +LIDO5DIS41 TD; +LIPI80TA PO; +LORA-243 PO; +METF500T13 PO; -MOM 30ML SUSPENSION UDC PO; +OMEP20CA3 PO; -ONDANSETRON 4 MG TAB (S0181) PO; -POLYVINYL ALCOHOL OPHTH SOLN 15 ML(LIQUITEARS) OU; +PRAD150C PO; +TOPR50TA23 PO; +TRAM50TA2 PO; +TRAZ-186 PO; +VITMTA PO; +VOLT1GEL15 TOP; +ZOLO100T PO; +[UNRECOGNIZED DRUG - CODE] TOP
[2018-03-30] MEDS ORDERED: GLIP10TA6 (11:22)
[2018-03-30] MEDS ORDERED: ADACEL/BOOSTRIX VACCINE (DIPHTH/PERTUSS/ACELL/TETANUS)0.5ML SYR (90715) IM ONE (11:30)
--- NOTE | 2018-03-30 11:48 | REP ---
CT Head without contrast HISTORY: Trauma COMPARISON: 05/18/2009 Areas of decreased attenuation are present in the periventricular white matter. This represents small-vessel ischemic disease. There is no intraparenchymal hemorrhage, acute infarct, mass or midline shift. The ventricular system the ventricular system and cortical sulci are dilated consistent with mild volume loss. There is no extra cerebral collection. There is no fracture. The visualized sinuses are clear. IMPRESSION: 1. Small vessel ischemic disease. 2. Mild volume loss. Electronically Signed by Christopher Aparicio MD 03/30/2018 11:40 A
--- NOTE | 2018-03-30 11:53 | REP ---
CT cervical spine without contrast HISTORY: Trauma COMPARISON: None There is no acute fracture or subluxation. A disc bulge is present at the C2-3 level. Disc bulges with associated osteophyte formation are present at the C3-4 through C7-T1 levels. There is minimal to moderate narrowing of the spinal canal. Uncinate process hypertrophy is present at the C2-3 through C7-T1 levels. These findings produce minimal to moderate narrowing of the neural foramina. The cervical intervertebral discs are decreased in height consistent with disc degeneration. There is loss of the normal lordotic curve. IMPRESSION: 1. There is no acute fracture or subluxation. 2. There is cervical spondylosis at the C2-3 through C7-T1 levels. Electronically Signed by Christopher Aparicio MD 03/30/2018 11:45 A
[2018-03-30] MEDS ORDERED: MORPHINE 2 MG/ML 1ML SYRINGE (J2270) IV ONE (12:00)
[2018-03-30] MEDS ORDERED: ONDANSETRON 4MG/2ML VIAL (J2405) IV ONE (12:00)
[2018-03-30] MEDS ORDERED: BACI500O8 TOP (13:09)
--- NOTE | 2018-03-30 13:23 | REP ---
RIGHT SHOULDER, THREE VIEWS: HISTORY: Trauma. There is no acute fracture or dislocation. There is marked narrowing of the acromioclavicular joint space with associated osteophyte formation. There is mild narrowing of the glenohumeral joint space. IMPRESSION: Degenerative change as described above. Electronically Signed by Christopher Aparicio MD 03/30/2018 01:24 P
[2018-03-30 13:39] VITALS: BP 153/78
[2018-03-31] MEDS ORDERED: ONDA4TAB6 PO (00:03)
[2018-03-31] MEDS ORDERED: MECL-68 PO (05:19)
== END 2018-03-30 13:42 | disposition home or self-care (01) ==
LOC: M ED 11:09 → EDBD 11:09 → M ED 13:42
DX: S01.01XA Laceration without foreign body of scalp, initial encounter (principal); S40.019A Contusion of unspecified shoulder, initial encounter; I48.91 Unspecified atrial fibrillation; I50.9 Heart failure, unspecified; E11.22 Type 2 diabetes mellitus with diabetic chronic kidney disease; N18.9 Chronic kidney disease, unspecified; Z87.891 Personal history of nicotine dependence; W00.9XXA Unspecified fall due to ice and snow, initial encounter; Z86.73 Personal history of transient ischemic attack (TIA), and cerebral infarction without residual deficits

== ENCOUNTER 2018-03-30 22:27 | Emergency (ER) | payer MEDICARE, OTHER ==
[~2018-03-30] VITALS: Ht 167.6 cm; Wt 74.5 kg
[~2018-03-30 22:27] MED LIST changes: +BACI500O8 TOP; +GLIP10TA6
[2018-03-30] MEDS ORDERED: ONDANSETRON 4 MG ORAL DISINTEGRATING TAB (Q0162 PER 1MG) PO ONE (23:15)
[2018-03-31] MEDS ORDERED: ONDA4TAB6 PO (00:03)
[2018-03-31] MEDS ORDERED: ONDANSETRON 4 MG ORAL DISINTEGRATING TAB (Q0162 PER 1MG) PO ONE (00:45)
[2018-03-31] MEDS ORDERED: NS 1,000 ML IV ONE (00:45)
[2018-03-31 00:57] LABS: BASO % 0.1 % (0.0-1.0); HEMATOCRIT 44.1 % (42.0-52.0); HEMOGLOBIN 14.8 g/dl (13.5-17.5); LYMPH # 0.6 10^3/uL (1.5-4.5); LYMPH % 5.7 % (24.0-44.0); MEAN CORPUSCULAR HEMOGLOBIN 30.6 pg (27.0-33.0); MEAN CORPUSCULAR HGB CONC 33.6 g/dl (32.0-36.5); MEAN CORPUSCULAR VOLUME 91.3 fl (80.0-96.0); MONO # 0.4 10^3/uL (0.0-0.8); MONO % 3.8 % (0.0-5.0); NEUTROPHILS # 10.1 10^3/uL (1.8-7.7); NEUTROPHILS % 89.9 % (36.0-66.0); PLATELET COUNT, AUTOMATED 144 10^3/uL (150-450); RED BLOOD COUNT 4.83 10^6/uL (4.30-6.10); WHITE BLOOD COUNT 11.2 10^3/uL (4.0-10.0)
[2018-03-31 01:41] LABS: ALBUMIN 3.7 GM/DL (3.2-5.2); BILIRUBIN,DIRECT 0.2 MG/DL (0.0-0.2); BILIRUBIN,TOTAL 0.4 MG/DL (0.2-1.0); CALCIUM LEVEL 8.6 MG/DL (8.8-10.2); CREATININE FOR GFR 1.95 MG/DL (0.70-1.30); GLOMERULAR FILTRATION RATE 35.7 (>42); POTASSIUM SERUM 4.4 MEQ/L (3.5-5.1); TOTAL PROTEIN 6.8 GM/DL (6.4-8.2)
[2018-03-31] MEDS ORDERED: METOCLOPRAMIDE INJ 10MG/2ML VIAL (J2765) IV ONE (02:30)
--- NOTE | 2018-03-31 03:31 | REPVR ---
EXAM: CT Head Without Contrast EXAM DATE/TIME: 03/31/2018 2:13 AM CLINICAL HISTORY: 77 years old, male; Injury or trauma; Fall; Additional info: Head injury/continued vomiting and dizziness TECHNIQUE: Axial computed tomography images of the head/brain without contrast. All CT scans at this facility use at least one of these dose optimization techniques: automated exposure control; mA and/or kV adjustment per patient size (includes targeted exams where dose is matched to clinical indication); or iterative reconstruction. COMPARISON: CT Head without contrast 03/30/2018 11:19 AM FINDINGS: Brain: There is minimal patchy low attenuation of deep white matter. There is slight prominence of the peripheral sulci. Ventricles: There is mild prominence of the central ventricular system. Bones/joints: Focal depression of left lamina papyracea. Sinuses: Visualized sinuses are unremarkable. No acute sinusitis. Mastoid air cells: Visualized mastoid air cells are unremarkable. No mastoid effusion. Soft tissues: Occipital scalp soft tissue swelling with skin zbigniew. IMPRESSION: 1. Slightly increased occipital scalp soft tissue swelling and interval placement of skin zbigniew since 03/30/2018. 2. Otherwise, there has been no change. No acute interval intracranial process is identified. 3. Minimal chronic ischemic white matter change and mild atrophy. 4. Focal depression of the left lamina papyracea consistent with old injury. Electronically signed by: Dimitry Brewer On 03/31/2018 03:31:30 AM
[2018-03-31] MEDS ORDERED: MECLIZINE 25 MG TABLET PO ONE (04:00)
[2018-03-31] MEDS ORDERED: MECL-68 PO (05:19)
[2018-03-31 06:44] VITALS: BP 138/76
== END 2018-03-31 07:12 | disposition home or self-care (01) ==
LOC: M ED 22:27
DX: S06.0X9A Concussion with loss of consciousness of unspecified duration, initial encounter (principal); R11.0 Nausea; E11.22 Type 2 diabetes mellitus with diabetic chronic kidney disease; N18.3 Chronic kidney disease, stage 3 (moderate); I50.9 Heart failure, unspecified; F32.9 Major depressive disorder, single episode, unspecified; Z79.4 Long term (current) use of insulin; F43.10 Post-traumatic stress disorder, unspecified; W19.XXXA Unspecified fall, initial encounter; Y92.009 Unspecified place in unspecified non-institutional (private) residence as the place of occurrence of the external cause
CPT/HCPCS: 70450; 72125; 73030; 80048; 80076; 85025; 90715; 99284; J2270; J2405; J2765; Q0162

== ENCOUNTER → 2018-07-24 | Outpatient (CLI) | payer MEDICARE, OTHER ==
[~2018-07-24] MED LIST changes: +BACI500O21 TOP; +MECL-68 PO; +ONDA4TAB6 PO; -PRAD150C PO; +PRAD150C6 PO; +TOPR50TA PO; -TOPR50TA23 PO; -[UNRECOGNIZED DRUG - CODE] TOP
--- NOTE | 2018-07-24 18:05 | REP ---
Clinical: Contusion. Technique: Internal rotation, external rotation, and Y view of the left shoulder. Findings: Age-related degenerative changes at the acromioclavicular and glenohumeral joints are appreciated. No acute fracture dislocation. No periarticular calcifications or loose bodies noted. Impression: Age-related degenerative changes. No acute fracture or dislocation. Electronically Signed by Silvio Narvaez MD 07/24/2018 05:55 P
--- NOTE | 2018-07-24 18:06 | REP ---
Clinical: Trauma. Technique: AP, lateral, bilateral oblique views left wrist . Findings: Age-related degenerative changes are appreciated. The carpal bones, surrounding osseous structures, soft tissues, and joint spaces are normal. There is no evidence for acute fracture or dislocation. No subcutaneous emphysema or radiodense foreign body. Impression: Age-related degenerative changes noted. No acute fracture or dislocation Electronically Signed by Silvio Narvaez MD 07/24/2018 05:57 P
--- NOTE | 2018-07-24 18:12 | REP ---
Clinical: Contusion. Technique: AP and lateral views of the left forearm. Findings: Degenerative changes and findings to suggest possible old injuries. No acute fracture dislocation identified. Swelling is suggested. No subcutaneous emphysema or foreign body. Impression: Degenerative changes and findings to suggest old injuries. Possible swelling. No acute fracture dislocation. Electronically Signed by Silvio Narvaez MD 07/24/2018 06:03 P
--- NOTE | 2018-07-24 18:13 | REP ---
Clinical: Contusion. Technique: Two orthogonal views of the left humerus. Findings: Age-related changes are appreciated. No acute fracture dislocation identified. No subcutaneous emphysema or radiodense foreign body. Impression: No acute fracture or dislocation appreciated. Electronically Signed by Silvio Narvaez MD 07/24/2018 06:04 P
--- NOTE | 2018-07-24 18:14 | REP ---
Clinical: Pain. Contusion. Technique: AP, lateral, bilateral oblique views of the left hand. Findings: Moderate arthritic degenerative changes noted. No acute fracture dislocation. No subcutaneous emphysema or radiodense foreign body. Impression: Moderate arthritic degenerative changes. No acute fracture or dislocation appreciated. Electronically Signed by Silvio Narvaez MD 07/24/2018 06:06 P
== END ==
LOC: M WUC 17:24
PROVIDERS: ATTEND Physician Assistant
DX: S40.022A Contusion of left upper arm, initial encounter (principal); S50.02XA Contusion of left elbow, initial encounter; S50.12XA Contusion of left forearm, initial encounter; M19.032 Primary osteoarthritis, left wrist; M19.042 Primary osteoarthritis, left hand; X58.XXXA Exposure to other specified factors, initial encounter; Y92.9 Unspecified place or not applicable

== ENCOUNTER 2019-02-24 14:34 | Emergency (ER) | payer OTHER, MEDICARE ==
[~2019-02-24] VITALS: Ht 165.1 cm; Wt 82.5 kg
[~2019-02-24 14:34] MED LIST changes: -ARTI99.0 OU; +ARTIDRO2 OU; +OMEP-172 PO; -OMEP20CA3 PO
[2019-02-24] MEDS ORDERED: AMOX875T2 (14:44)
[2019-02-24] MEDS ORDERED: FLUORESCEIN OPHTH 1 MG STRIP OS ONE (16:30)
[2019-02-24] MEDS ORDERED: TETRACAINE 0.5% OPHTH SOLN 4ML OS ONE (16:30)
[2019-02-24] MEDS ORDERED: ERYTHROMYCIN OPHTH OINT OS ONE (17:30)
[2019-02-24] MEDS ORDERED: KETOROLAC 0.5% OPHTH SOLN OS ONE (17:30)
[2019-02-24] MEDS ORDERED: ERYTOIN8 OS (17:31)
[2019-02-24] MEDS ORDERED: ACUL0.5S OS (17:31)
[2019-02-24 17:54] VITALS: BP 153/73
== END 2019-02-24 17:55 | disposition home or self-care (01) ==
LOC: M ED 14:34
DX: S05.02XA Injury of conjunctiva and corneal abrasion without foreign body, left eye, initial encounter (principal); H11.32 Conjunctival hemorrhage, left eye; X58.XXXA Exposure to other specified factors, initial encounter; Y92.099 Unspecified place in other non-institutional residence as the place of occurrence of the external cause; Y93.9 Activity, unspecified; Y99.9 Unspecified external cause status; I48.91 Unspecified atrial fibrillation; N18.3 Chronic kidney disease, stage 3 (moderate); I50.9 Heart failure, unspecified; E11.9 Type 2 diabetes mellitus without complications; I10 Essential (primary) hypertension; E78.5 Hyperlipidemia, unspecified; K57.32 Diverticulitis of large intestine without perforation or abscess without bleeding; F41.9 Anxiety disorder, unspecified; F32.9 Major depressive disorder, single episode, unspecified; F43.10 Post-traumatic stress disorder, unspecified; Z85.46 Personal history of malignant neoplasm of prostate; Z92.21 Personal history of antineoplastic chemotherapy; Z79.4 Long term (current) use of insulin; Z79.899 Other long term (current) drug therapy; Z91.012 Allergy to eggs

== ENCOUNTER 2019-04-18 12:17 | Inpatient (IN) | payer OTHER, MEDICARE ==
[~2019-04-18] VITALS: Ht 165.1 cm; Wt 77.5 kg
[~2019-04-18 12:17] MED LIST changes: +ACUL0.5S OS; +AMOX875T2; -ARTIDRO2 OU; +ERYTOIN8 OS; -MECL-68 PO; +MECL1TAB31 PO; -OMEP-172 PO; +OMEP1CAP73 PO; +POLYOPD OU
[2019-04-18 16:05] VITALS: BP 150/70
--- NOTE | 2019-04-18 17:16 | HPEPDOC ---
[facility] Medical History & Physical Date of Admission Apr 18, 2019 Date of Service: Apr 18, 2019 Attending Physician: SAJI GONZALEZ MD History and Physical CHIEF COMPLAINT: Transferred from [place] for rectal bleeding HISTORY OF PRESENT ILLNESS: 78-year-old male with past medical history of prostate cancer status post chemoradiation, rectal ulceration, status post multiple surgical interventions, COPD, hypertension, diabetes mellitus, hyperlipidemia and atrial fibrillation on Pradaxa was admitted at [facility] for rectal bleeding. Patient had one large bloody bowel movement mixed with stool 5 days ago, subsequently had multiple BMs over the past few days with decreasing amount of blood per day. No bloody bowel movements for over 24 hours, had a normal bowel movement with formed stool earlier today without any blood. Patient was transferred for a colonoscopy. Patient is on Pradaxa for atrial fibrillation, has been held since . Patient reports history of rectal ulceration secondary to radiation for his prostate cancer, also has hemorrhoids, reports small volume bloody BM about 8-10 times per month. Patient is hemodynamically stable, currently comfortable in bed, without any complaints at this time. He denies any short of breath, chest pain, nausea, vomiting, abdominal pain or headache. 10 point review of system is negative except for above PAST MEDICAL HISTORY: 1. Atrial fibrillation. 2. COPD. 3. Diabetes mellitus. 4. Hypertension 5. Hyperlipidemia. 6. Prostate cancer PAST SURGICAL HISTORY: 1. Right ankle surgery. 2. Multiple rectal surgeries. 3. Prostate seeding. SOCIAL HISTORY: Previous pipe smoker. Social alcohol use Denies drug use FAMILY HISTORY: Both parents with heart disease ALLERGIES: Please see below. HOME MEDICATIONS: Please see below. PHYSICAL EXAMINATION: VITAL SIGNS: Please see below. GENERAL: No distress HEENT: Normocephalic, atraumatic, moist mucous membranes NECK: Supple CARDIOVASCULAR EXAMINATION: Irregularly irregular RESPIRATORY EXAMINATION: Clear to auscultation, no wheezing ABDOMINAL EXAMINATION: Soft, nontender, nondistended, positive bowel sounds EXTREMITIES: Range of motion intact SKIN: No rash NEUROLOGICAL EXAMINATION: Alert and oriented 3, no focal deficits PSYCHIATRIC EXAMINATION: Calm and cooperative LABORATORY DATA: See below. MICROBIOLOGY: Please see below. ASSESSMENT: 78-year-old male with extensive medical history on anticoagulation, who was admitted to [facility] for rectal bleeding presents to [facility] for colonoscopy. PLAN: 1. Rectal bleeding. On anticoagulation, has been held since , no bloody BM for over 24 hours, case discussed with aircraft part assembler, clear liquid diet, plan for c olonoscopy in 24-48 hours 2. Atrial fibrillation. On Pradaxa in the outpatient setting, will start heparin drip prior to colo noscopy, continue metoprolol for rate control 3. Diabetes mellitus. Sliding scale insulin with meals and at bedtime 4. Hypertension Continue metoprolol DVT prophylaxis: Heparin drip GI prophylaxis: Home PPI Home Medications Scheduled Atorvastatin Calcium (Lipitor) 80 Mg Tab, 40 MG PO DAILY Bacitracin (Bacitracin) 500 Unit/Gm Oin, 1 APLCT TOP BID apply to affected area(s) Dabigatran Etexilate Mesylate (Pradaxa) 150 Mg Cap, 150 MG PO BID Diclofenac Sodium (Voltaren) 1 % Gel, 1 DOSE TOP QID APPLY TO ELBOWS Donepezil HCl (Donepezil HCl) 10 Mg Tab, 10 MG PO DAILY Erythromycin Base (Erythromycin) 3.5 Gm Oint...g., 1 APLCT OS QID apply 1 cm ribbon into the lower conjunctival sac Ferrous Sulfate (Ferrous Sulfate) 325 Mg Tab, 325 MG PO BID Insulin Glargine (Lantus) 1 Units/0.01 Ml Susp, UNITS SC DAILYPRN PER SLIDING SCALE Insulin Human Lispro (Novolog) 100 U/Ml Inj, 1 DOSE SC ASDIRECTED PER SLIDING SCALE Ketorolac Tromethamine (Acular) 0.5% 5ML Drops, 1 DROP OS QID for itching Loratadine (Loratadine) 10 Mg Tab, 10 MG PO DAILY Meclizine HCl (Meclizine HCl) 25 Mg Tab, 25 MG PO Q8H Metoprolol Succinate (Toprol Xl) 50 Mg Tab, 50 MG PO DAILY Multivitamins (Thera M Plus Tablet) 1 Tab Tab, 1 TAB PO DAILY [place]-3/Dha/Epa/Fish Oil (Fish Oil EC 1,000 mg Softgel) 1 Cap Cap, 2 CAP PO BID Omeprazole (Omeprazole) 20 Mg Cap, 20 MG PO DAILY Sertraline Hcl (Zoloft) 100 Mg Tab, 200 MG PO BID Scheduled PRN Lidocaine (Lidoderm) 5 % Dis, 1 PATCH TD DAILY PRN for PAIN APPLY TO SHOULDERS AND BACK Ondansetron (Ondansetron Odt) 4 Mg Tab, 4 MG PO Q6-8HP PRN for nausea/vomiting Polyvinyl Alcohol (Artificial Tears) 1.4 % Ginger, 1 DROP OU QID PRN for DRY EYES Tramadol HCl (Tramadol HCl) 50 Mg Tab, 50 MG PO Q6HP PRN for MODERATE PAIN (PS 5-7) [Acetaminophen Tab] 325 MG/TAB TAB, 650 MG PO Q4HP PRN for MILD PAIN (PS 1-4) Miscellaneous Medications Amoxicillin/Potassium Clav (Amox-Clav 875-125 mg Tablet) 1 Each Tablet Glipizide (Glipizide) 10 Mg Tab Allergies Coded Allergies: egg (Verified Allergy, Unknown, 02/24/19) ANAPHYLAXIS A-FIB/CHADSVASC A-FIB History Current/History of A-Fib/PAF?: Yes Current PO Anticoag Therapy: Yes SAJI GONZALEZ MD Apr 18, 2019 17:16
[2019-04-18] MEDS ORDERED: DEXTROSE 50% 50 ML SYRINGE IV PRN (17:30)
[2019-04-18] MEDS ORDERED: GLUCAGON FOR INJ 1 MG VIAL (J1610) SC PRN (17:30)
[2019-04-18] MEDS ORDERED: GLUCOSE 4 GM CHEW TABLET PO PRN (17:30)
[2019-04-18] MEDS ORDERED: HEPARIN SOD (PORCINE) 5000 UNITS/ML VIAL (J1644 PER 1000UNITS) IV PRN (17:30)
[2019-04-18] MEDS ORDERED: HEPARIN SOD (PORCINE) 5000 UNITS/ML VIAL (J1644 PER 1000UNITS) IV ONE (17:30)
[2019-04-18] MEDS ORDERED: ACET-683 PO (18:16)
[2019-04-18] MEDS ORDERED: TRAZ-257 PO (18:16)
[2019-04-18] MEDS ORDERED: FERR1TAB8 PO (18:16)
[2019-04-18] MEDS ORDERED: SERT-138 PO (18:16)
[2019-04-18] MEDS ORDERED: TRAM50TA2 PO (18:16)
[2019-04-18] MEDS ORDERED: PRAD150C6 PO (18:16)
[2019-04-18] MEDS ORDERED: LORA-674 PO (18:16)
[2019-04-18] MEDS ORDERED: OMEP-218 PO (18:16)
[2019-04-18] MEDS ORDERED: METO1TAB7 PO (18:16)
[2019-04-18] MEDS ORDERED: DONE10TA90 PO (18:16)
[2019-04-18] MEDS ORDERED: GLIP10TA18 PO (18:16)
[2019-04-18] MEDS ORDERED: VOLT1GEL15 TOP (18:16)
[2019-04-18] MEDS ORDERED: ATOR80TA59 PO (18:16)
[2019-04-18] MEDS: HumaLOG INSULIN (NovoLOG) PER UNIT SC SCH ×2 (18:19→20:40)
[2019-04-18] MEDS: HEPARIN DRIP 25,000 UNITS in IV 1 EA IV SCH (19:03)
[2019-04-18] MEDS ORDERED: traMADol 50 MG TAB PO PRN (19:45)
[2019-04-18] MEDS ORDERED: LIDOCAINE 5% (LIDODERM) PATCH TD PRN (19:45)
[2019-04-18] MEDS ORDERED: POLYVINYL ALCOHOL OPHTH SOLN 15 ML(LIQUITEARS) OU PRN (19:45)
[2019-04-18] MEDS ORDERED: ACETAMINOPHEN 500 MG TAB PO PRN (19:45)
[2019-04-18] MEDS ORDERED: traZODone 100 MG TAB PO PRN (19:45)
[2019-04-18 20:00] VITALS: BP 159/76
[2019-04-18] MEDS: **NOTE PATIENT COMMENT** MISC XX SCH (21:00)
[2019-04-18] MEDS: FERROUS SULFATE 325MG TAB PO SCH (21:03)
[2019-04-18] MEDS: METOPROLOL SUCC (TopROL XL) 50MG **XL** TAB PO SCH (21:03)
[2019-04-18] MEDS: ATORVASTATIN 20 MG TAB PO SCH (21:04)
[2019-04-18] MEDS: OMEGA-3 1000MG CAPSULE PO SCH (21:04)
[2019-04-18] MEDS: SERTRALINE 100 MG TAB PO SCH (21:05)
[2019-04-18] MEDS: DONEPEZIL 5 MG TAB PO SCH (21:05)
[2019-04-18 23:59] VITALS: BP 146/76
[2019-04-19 04:00] VITALS: BP 157/81
[2019-04-19 06:51] LABS: HEMOGLOBIN 13.4 g/dl (13.5-17.5); MEAN CORPUSCULAR HEMOGLOBIN 29.8 pg (27.0-33.0); MEAN CORPUSCULAR HGB CONC 33.5 g/dl (32.0-36.5); MEAN CORPUSCULAR VOLUME 88.9 fl (80.0-96.0); PLATELET COUNT, AUTOMATED 109 10^3/uL (150-450); WHITE BLOOD COUNT 6.4 10^3/uL (4.0-10.0)
[2019-04-19 07:39] LABS: ALBUMIN 2.5 GM/DL (3.2-5.2); BILIRUBIN,TOTAL 0.7 MG/DL (0.2-1.0); CALCIUM LEVEL 8.4 MG/DL (8.8-10.2); CREATININE FOR GFR 1.7 MG/DL (0.70-1.30); GLOMERULAR FILTRATION RATE 41.7 (>42); MAGNESIUM LEVEL 1.8 MG/DL (1.8-2.4); POTASSIUM SERUM 4.3 MEQ/L (3.5-5.1); TOTAL PROTEIN 5.9 GM/DL (6.4-8.2)
[2019-04-19 08:00] VITALS: BP 158/76
[2019-04-19] MEDS: HumaLOG INSULIN (NovoLOG) PER UNIT SC SCH ×4 (09:54→20:56)
[2019-04-19] MEDS: LORATADINE 10 MG TAB PO SCH (09:54)
[2019-04-19] MEDS: OMEPRAZOLE 20 MG CAP PO SCH (09:54)
[2019-04-19] MEDS: OMEGA-3 1000MG CAPSULE PO SCH ×2 (09:54→20:55)
[2019-04-19] MEDS: SERTRALINE 100 MG TAB PO SCH ×2 (09:54→20:56)
[2019-04-19] MEDS: FERROUS SULFATE 325MG TAB PO SCH ×2 (09:55→20:54)
[2019-04-19] MEDS: MULTIVITAMINS/MINERALS THERAP 1 TAB PO SCH (09:55)
[2019-04-19 12:00] VITALS: BP 134/64
[2019-04-19 16:00] VITALS: BP 133/62
[2019-04-19] MEDS ORDERED: GOLYTELY SOLN 4000 ML BTL PO ONE (16:45)
[2019-04-19] MEDS ORDERED: BISACODYL 5 MG TAB PO ONE (16:45)
--- NOTE | 2019-04-19 18:38 | CR.PDOC ---
General Date of Consultation: Apr 19, 2019 Referring Provider: SAJI GONZALEZ MD Attending Physician: SINAN THORPE MD Consultation Patient was seen and examined on 04/18/2019 and again on 04/19/2019. Primary physician/ hospitalist: -Saji Astudillo Reason for consult: -Rectal bleeding. HPI: 78-year-old male patient with HTN, DM type II, HLD, COPD, CKD stage III, atrial fibrillation, on Pradaxa, history of prostate cancer, status post chemoradiation, and prior multiple episodes of rectal bleeding, which were treated by surgical team for rectal ulcer as per patient, is transferred from [facility] for recurrent rectal bleeding. Patient reports having large bloody bowel movement last week, on , and since then gradual improvement in the amount of blood per rectum. Patient denies any dizziness, syncope, shortness of breath or abdominal pain. Patient was stopped on Pradaxa by his primary physician in [facility] since . Pertinent negative GI symptoms: Patient denies fever, sick contacts, recent travel, nausea, vomiting, diarrhea, abdominal pain, loss of appetite, early satiety or unintentional weight loss. No history of hematemesis, melena. Review of Systems: GI: as stated above CVS: No chest pain, No palpitations, No leg swelling. RS: No Shortness of breath, No Wheezing, no cough PIANO MOVER: No dizziness, No motor weakness, No sensory problems Hematology: No bruising, No gum bleeding, Musculoskeletal: No joint pain, ambulating well. Skin: No rash : No hematuria, No burning sensation of the urine ENT: No ear discharge/ pain, No dysphagia. Eyes: No photophobia. Jaundice Home medications: reviewed. Antithrombotic agents: -On Pradaxa Medical h/o: As above. Surgical h/o: None on abdomen. Social h/o: Alcohol: -Occasional, smoking: Past history of smoking, IVDA/ drugs:. Denies. Family h/o of GI cancers - None Prior Endoscopies: --- EGD: -, None --- Colonoscopy: -More than 5 years ago, normal as per patient Prior GI evaluations: -, None in [facility] Exam: Vitals: reviewed General: Alert and oriented x 3, not in distress HEENT: NO pallor, no icterus. Normal oropharynx, NO cervical lymph nodes. Chest: symmetric with bilateral clear air entry, CVS: S1, S2 heard, normal, no murmurs . Abdomen: non-distended, obese, no surgical scars, soft, non-tender, no palpable masses, normal bowel sounds heard. Rectal exam: Patient refused / Deferred at this time in view of scheduled colonoscopy. Extremities: no pedal edema, pulses palpable. PIANO MOVER: no focal motor or sensory deficits. Moves all extremities Skin: no rash. Labs: reviewed. Noted mild thrombocytopenia, on review of past labs had prior episode in 2018 with thrombocytopenia. No abdominal imaging. Impression: - Recurrent bright red rectal bleeding, any patient with history of radiation therapy to prostrate cancer, prior similar rectal bleeding, and on anticoagulation for atrial fibrillation -- DDx-- likely Radiation proctitis vs r/o Colon polyps vs hemorrhoids vs less likely Colon cancer. - Intermittent thrombocytopenia -- Needs elective work up at PCP / hematology clinic. Recommendations: - Patient educated about the test results, possible differential diagnoses and All questions answered. - Monitor Hemoglobin and hematocrit and transfuse as needed. - As stable hemoglobin, if needed can consider bridging therapy for anticoagulation as per the risks and benefits. To stop heparin drip atleast 6 hours prior to procedure. - Will schedule for Colonoscopy tomorrow after the bowel prep. - The procedure, indications, risks (bleeding, perforation, infection, hypotension, respiratory depression, allergy, need for endotracheal intubation, surgery, colostomy, cardiac arrest, even ), benefits, limitations (e.g., missing a lesion), and all other alternatives (including no intervention) were explained to the patient who understood and agreed for the procedure. - To stop heparin drip atleast 6 hours prior to procedure. - please review operative note for post procedure recommendations. Plan of care discussed with patient and primary team. Patient verbalized understanding and agreed with the plan. Vital Signs/I&O Vital Signs Date Time Temp Pulse Resp B/P (MAP) Pulse Ox O2 Delivery O2 Flow Rate FiO2 04/19/19 16:00 98.0 75 20 133/62 (85) 100 04/19/19 04:00 Room Air I&O- Last 24 Hours up to 6 AM 04/19/19 05:59 Intake Total 0 ml Output Total 400 ml Balance -400 ml Laboratory Data CBC/BMP Laboratory Tests 04/19/19 06:39 Allergies Coded Allergies: egg (Verified Allergy, Unknown, 02/24/19) ANAPHYLAXIS Home Medications Scheduled Atorvastatin Calcium (Atorvastatin Calcium) 80 Mg Tablet, 40 MG PO QHS, (Reported) Dabigatran Etexilate Mesylate (Pradaxa) 150 Mg Capsule, 150 MG PO BID, (Reported) Diclofenac Sodium (Voltaren) 1 % Gel, 1 DOSE TOP QID, (Reported) APPLY TO ELBOWS Donepezil HCl (Donepezil HCl) 10 Mg Tablet, 10 MG PO DAILY, (Reported) Ferrous Sulfate (Ferrous Sulfate) 325 Mg Tablet, 325 MG PO BID, (Reported) Glipizide (Glipizide ER) 10 Mg Tab.er.24, 10 MG PO DAILY, (Reported) Insulin Glargine (Lantus) 1 Units/0.01 Ml Susp, 1 DOSE SC QHS, (Reported) PER SLIDING SCALE Insulin Human Lispro (Novolog) 100 U/Ml Inj, 1 DOSE SC ASDIRECTED, (Reported) PER SLIDING SCALE Loratadine (Loratadine) 10 Mg Tablet, 10 MG PO DAILY, (Reported) Metoprolol Succinate (Metoprolol Succinate) 50 Mg Tab.er.24h, 50 MG PO QHS, (Reported) Multivitamins (Thera M Plus Tablet) 1 Tab Tab, 1 TAB PO DAILY, (Reported) [place]-3/Dha/Epa/Fish Oil (Fish Oil EC 1,000 mg Softgel) 1 Cap Cap, 2 CAP PO BID, (Reported) Omeprazole (Omeprazole) 20 Mg Capsule.dr, 20 MG PO DAILY, (Reported) GIVEN PROTONIX AT [place] Sertraline HCl (Sertraline HCl) 100 Mg Tablet, 200 MG PO BID, (Reported) Scheduled PRN Acetaminophen (Acetaminophen) 500 Mg Tablet, 500 MG PO Q4H PRN for PAIN, (Reported) Diclofenac Sodium (Voltaren) 100 Gm Gel..gram., 1 APPLIC TOP QID PRN for PAIN, (Reported) ELBOWS Lidocaine (Lidoderm) 5 % Dis, 1 PATCH TD DAILY PRN for PAIN, (Reported) APPLY TO SHOULDERS AND BACK Polyvinyl Alcohol (Artificial Tears) 1.4 % Ginger, 1 DROP OU QID PRN for DRY EYES, (Reported) Tramadol HCl (Tramadol HCl) 50 Mg Tablet, 50 MG PO Q8H PRN for BACK PAIN, (Reported) Trazodone HCl (Trazodone HCl) 100 Mg Tablet, 100 MG PO QHS PRN for INSOMNIA, (Reported) ISNAN THORPE MD Apr 19, 2019 18:38
[2019-04-19] MEDS: HEPARIN DRIP 25,000 UNITS in IV 1 EA IV SCH (19:20)
[2019-04-19 20:00] VITALS: BP 145/76
--- NOTE | 2019-04-19 20:40 | IPNPDOC ---
Date Seen The patient was seen on 04/19/19. Progress Note SUBJECTIVE: 78-year-old male with past medical history of prostate cancer status post chemoradiation, rectal ulceration, status post multiple surgical interventions, COPD, hypertension, diabetes mellitus, hyperlipidemia and atrial fibrillation on Pradaxa was admitted at [facility] for rectal bleeding. Patient had one large bloody bowel movement mixed with stool 5 days ago, subsequently had multiple BMs over the past few days with decreasing amount of blood per day. No bloody bowel movements for over 24 hours, had a normal bowel movement with formed stool earlier today without any blood. Patient was transferred for a colonoscopy. Patient is on Pradaxa for atrial fibrillation, has been held since . Patient reports history of rectal ulceration secondary to radiation for his prostate cancer, also has hemorrhoids, reports small volume bloody BM about 8-10 times per month. Patient is hemodynamically stable, currently comfortable in bed, without any complaints at this time. He denies any short of breath, chest pain, nausea, vomiting, abdominal pain or headache. 04/19/19 Seen in the morning, comfortable, without complaints, one non-bloody BM overnight, scheduled for Colonoscopy tomorrow. 10 point review of system is negative except for above PHYSICAL EXAMINATION: VITAL SIGNS: Please see below. GENERAL: No distress HEENT: Normocephalic, atraumatic, moist mucous membranes NECK: Supple CARDIOVASCULAR EXAMINATION: Irregularly irregular RESPIRATORY EXAMINATION: Clear to auscultation, no wheezing ABDOMINAL EXAMINATION: Soft, nontender, nondistended, positive bowel sounds EXTREMITIES: Range of motion intact SKIN: No rash NEUROLOGICAL EXAMINATION: Alert and oriented 3, no focal deficits PSYCHIATRIC EXAMINATION: Calm and cooperative LABORATORY DATA: See below. MICROBIOLOGY: Please see below. ASSESSMENT: 78-year-old male with extensive medical history on anticoagulation, who was admitted to [facility] for rectal bleeding presents to [facility] for colonoscopy. PLAN: 1. Rectal bleeding. On anticoagulation, has been held since , no bloody BM for over 48 hours, evaluated by GI, scheduled for colonoscopy tomorrow, Heparin to be held 6 hours prior to procedure. 2. Atrial fibrillation. On Pradaxa in the outpatient setting, continue heparin drip prior to colonoscopy, continue metoprolol for rate control 3. Diabetes mellitus. Sliding scale insulin with meals and at bedtime 4. Hypertension Continue metoprolol 5. CKD - creatinine at baseline, will monitor. DVT prophylaxis: Heparin drip GI prophylaxis: Home PPI VS, I&O, 24H, Fishbone Vital Signs/I&O Vital Signs Date Time Temp Pulse Resp B/P (MAP) Pulse Ox O2 Delivery O2 Flow Rate FiO2 04/19/19 16:00 98.0 75 20 133/62 (85) 100 04/19/19 04:00 Room Air I&O- Last 24 Hours up to 6 AM 04/19/19 06:00 Intake Total 0 ml Output Total 400 ml Balance -400 ml Laboratory Data 24H LABS Laboratory Tests 2 04/18/19 20:39: Bedside Glucose (Misc Panel) 166H 04/19/19 00:56: Activated Partial Thromboplast Time 85.9H 04/19/19 06:39: Activated Partial Thromboplast Time 88.6H, Nucleated Red Blood Cells % (auto) 0.0, Anion Gap 2L, Glomerular Filtration Rate 41.7L, Calcium Level 8.4L, Magnesium Level 1.8, Total Bilirubin 0.7, Aspartate Amino Transf (AST/SGOT) 25, Alanine Aminotransferase (ALT/SGPT) 21, Alkaline Phosphatase 47, Total Protein 5.9L, Albumin 2.5L, Albumin/Globulin Ratio 0.74L 04/19/19 12:11: Bedside Glucose (Misc Panel) 199H 04/19/19 16:56: Bedside Glucose (Misc Panel) 179H CBC/BMP Laboratory Tests 04/19/19 06:39 SAJI GONZALEZ MD Apr 19, 2019 20:40
[2019-04-19] MEDS: DONEPEZIL 5 MG TAB PO SCH (20:55)
[2019-04-19] MEDS: METOPROLOL SUCC (TopROL XL) 50MG **XL** TAB PO SCH (20:55)
[2019-04-19] MEDS: **NOTE PATIENT COMMENT** MISC XX SCH (20:56)
[2019-04-19] MEDS: ATORVASTATIN 20 MG TAB PO SCH (20:56)
[2019-04-19 23:59] VITALS: BP 178/87
[2019-04-20] VITALS (7 sets, daily range): BP systolic 124–171; BP diastolic 72–91
[2019-04-20 07:05] LABS: HEMATOCRIT 41.6 % (42.0-52.0); MEAN CORPUSCULAR HGB CONC 33.7 g/dl (32.0-36.5); MEAN CORPUSCULAR VOLUME 89.3 fl (80.0-96.0); PLATELET COUNT, AUTOMATED 119 10^3/uL (150-450); RED BLOOD COUNT 4.66 10^6/uL (4.30-6.10); WHITE BLOOD COUNT 5.7 10^3/uL (4.0-10.0)
[2019-04-20 07:25] LABS: CALCIUM LEVEL 8.4 MG/DL (8.8-10.2); CREATININE FOR GFR 1.78 MG/DL (0.70-1.30); GLOMERULAR FILTRATION RATE 39.5 (>42); POTASSIUM SERUM 4.1 MEQ/L (3.5-5.1)
[2019-04-20] MEDS: HumaLOG INSULIN (NovoLOG) PER UNIT SC SCH ×4 (07:30→21:00)
[2019-04-20] MEDS: OMEGA-3 1000MG CAPSULE PO SCH ×2 (08:20→21:23)
[2019-04-20] MEDS: SERTRALINE 100 MG TAB PO SCH ×2 (08:21→21:23)
[2019-04-20] MEDS: OMEPRAZOLE 20 MG CAP PO SCH (08:21)
[2019-04-20] MEDS: LORATADINE 10 MG TAB PO SCH (08:21)
[2019-04-20] MEDS: FERROUS SULFATE 325MG TAB PO SCH ×2 (08:21→21:24)
[2019-04-20] MEDS: MULTIVITAMINS/MINERALS THERAP 1 TAB PO SCH (08:21)
[2019-04-20] MEDS ORDERED: LIDOCAINE 2% INJ 100 MG/5 ML SDV (FOR ANES.) As Ordered ONE (14:17)
[2019-04-20] MEDS ORDERED: propofoL 200 MG/20 ML VIAL As Ordered ONE (14:17)
[2019-04-20] MEDS ORDERED: ePHEDrine SULFATE 25 MG/5 ML(5MG/ML) SYRINGE As Ordered ONE (14:27)
[2019-04-20] MEDS ORDERED: PHENYLephrine HCL 500 MCG/5 ML (100MCG/ML) SYRINGE (J2370) As Ordered ONE (14:30)
--- NOTE | 2019-04-20 15:01 | ROOR ---
Patient Name: Aramis Grande Procedure Date: 04/20/2019 2:17 PM Date of : 1940 Age: 78 Room: [facility] Gender: Male Note Status: Finalized Procedure: Colonoscopy Indications: Hematochezia Providers: Solomon Yoon MD Referring MD: Jessica Knott Md, 2. Inpatient 2. Inpatient Requesting Provider: Medicines: Monitored Anesthesia Care Complications: No immediate complications. Procedure: Pre-Anesthesia Assessment: - Prior to the procedure, a History and Physical was performed, and patient medications and allergies were reviewed. The patient is competent. The risks and benefits of the procedure and the sedation options and risks were discussed with the patient. All questions were answered and informed consent was obtained. Patient identification and proposed procedure were verified by the physician, the nurse and the anesthesiologist in the procedure room. Mental Status Examination: alert and oriented. Airway Examination: normal oropharyngeal airway and neck mobility. Respiratory Examination: clear to auscultation. CV Examination: normal. Prophylactic Antibiotics: The patient does not require prophylactic antibiotics. Prior Anticoagulants: The patient has taken Pradaxa (dabigatran), last dose was 5 days prior to procedure. ASA Grade Assessment: III - A patient with severe systemic disease. After reviewing the risks and benefits, the patient was deemed in satisfactory condition to undergo the procedure. The anesthesia plan was to use monitored anesthesia care (MAC). Immediately prior to administration of medications, the patient was re-assessed for adequacy to receive sedatives. The heart rate, respiratory rate, oxygen saturations, blood pressure, adequacy of pulmonary ventilation, and response to care were monitored throughout the procedure. The physical status of the patient was re-assessed after the procedure. The Colonoscope was introduced through the anus and advanced to the cecum, identified by appendiceal orifice and ileocecal valve. The colonoscopy was performed without difficulty. The patient tolerated the procedure well. The quality of the bowel preparation was poor except the right colon from rectum to descending colon was good. The ileocecal valve, the appendiceal orifice and the rectum were photographed. Scope insertion time was 2 minutes. Scope withdrawal time was 10 minutes. The total duration of the procedure was 15 minutes. Findings: The perianal and digital rectal examinations were normal. Two sessile polyps were found in the descending colon and transverse colon. The polyps were 5 to 10 mm in size. These polyps were removed with a hot snare. Resection and retrieval were complete. Verification of patient identification for the specimen was done by the physician and nurse using the patient's name, date and medical record number. Estimated blood loss was minimal. A few medium-sized patchy angioectasias with stigmata of recent bleeding were found in the rectum. Coagulation for hemostasis using argon plasma at 0.8 liters/minute and 20 castillo was successful. Retroflexion in the rectum was not performed due to anatomy. A large amount of semi-solid stool was found from transverse colon to cecum, precluding visualization. Lavage of the area was performed using a large amount of sterile water, resulting in incomplete clearance with continued poor visualization. Impression: - Two 5 to 10 mm polyps in the descending colon and in the transverse colon, removed with a hot snare. Resected and retrieved. - A few recently bleeding colonic angioectasias. Treated with argon plasma coagulation (APC). - Stool from transverse colon to cecum. Recommendation: - Patient has a contact number available for emergencies. The signs and symptoms of potential delayed complications were discussed with the patient. Return to normal activities tomorrow. Written discharge instructions were provided to the patient. - [facility]. - Advance diet as tolerated today. - High fiber diet. - Preparation H suppository: Insert rectally daily for 5 days. - Resume Pradaxa (dabigatran) at prior dose in 2 days. Refer to primary physician for further adjustment of therapy. - Resume heparin at prior dose for bridging therapy after 24 hours if indicated. Refer to primary physician for further adjustment of therapy. - Return to GI clinic if persistent symptoms or new symptoms. - Return to primary care physician. Solomon Yoon MD Solomon Yoon MD 04/20/2019 3:01:36 PM Electronically signed by Solomon Yoon MD Number of Addenda: 0 Note Initiated On: 04/20/2019 2:17 PM Estimated Blood Loss: Estimated blood loss was minimal.
[2019-04-20] MEDS ORDERED: PRAD150C6 PO (15:51)
--- NOTE | 2019-04-20 16:28 | DS.PDOC ---
Discharge Summary General Date of Admission Apr 18, 2019 at 16:05 Date of Discharge 04/20/19 Attending Physician: SAJI GONAZLEZ MD Discharge Summary PROCEDURES PERFORMED DURING STAY: None. ADMITTING DIAGNOSES: 1. GI bleed. DISCHARGE DIAGNOSES: 1. GI bleed. COMPLICATIONS/CHIEF COMPLAINT: G.i. Bleed. HISTORY OF PRESENT ILLNESS: 78-year-old male with past medical history of pr ostate cancer status post chemoradiation, rectal ulceration, COPD, diabetes, hypertension and hyperlipidemia was transferred from [place] for GI bleed. Patient had a large volume bloody bowel movement, on anticoagulation with Pradaxa for history of atrial fibrillation and DVT, GI bleeding had stopped 24- 48 hours prior to transfer. Patient was evaluated by gastroenterology and colonoscopy was scheduled, patient was bridged with heparin drip in the meantime for anticoagulation. Patient's hemoglobin remained stable, underwent colonoscopy today which showed a few recently bleeding colonic angioectasias, treated with argon laser. Patient has been cleared for discharge with close follow-up by gastroenterology. Patient remains asymptomatic, clinically and hemodynamically stable for discharge and outpatient follow-up. HOSPITAL COURSE: As above. DISCHARGE MEDICATIONS: Please see below. ALLERGIES: Please see below. PHYSICAL EXAMINATION: VITAL SIGNS: Please see below. GENERAL: No distress HEENT: Normocephalic, atraumatic, moist mucous membranes NECK: Supple CARDIOVASCULAR EXAMINATION: S1, S2, no murmurs RESPIRATORY EXAMINATION: Clear to auscultation, no wheezing ABDOMINAL EXAMINATION: Soft, nontender, nondistended, positive bowel sounds EXTREMITIES: Range of motion intact SKIN: No rash NEUROLOGICAL EXAMINATION: Alert and oriented 3, no focal deficits PSYCHIATRIC EXAMINATION: Calm and cooperative LABORATORY DATA: Please see below. PROGNOSIS: Fair ACTIVITY: As tolerated. DIET: Cardiac with consistent carbs DISCHARGE PLAN: Follow-up with GI and PCP in 1-2 weeks DISPOSITION: Home. DISCHARGE INSTRUCTIONS: 1. As above. DISCHARGE CONDITION: Stable. TIME SPENT ON DISCHARGE: Greater than 33 minutes. Vital Signs/I&Os Vital Signs Date Time Temp Pulse Resp B/P (MAP) Pulse Ox O2 Delivery O2 Flow Rate FiO2 04/20/19 15:01 97.2 63 16 123/87 (99) 97 Room Air I&O- Last 24 Hours up to 6 AM 04/20/19 06:00 Intake Total 1430 ml Output Total 500 ml Balance 930 ml Laboratory Data Labs 24H Laboratory Tests 2 04/19/19 16:56: Bedside Glucose (Misc Panel) 179H 04/19/19 20:32: Bedside Glucose (Misc Panel) 121H 04/20/19 06:39: Nucleated Red Blood Cells % (auto) 0.0, Activated Partial Thromboplast Time 99.4H, Anion Gap 7L, Glomerular Filtration Rate 39.5L, Calcium Level 8.4L 04/20/19 12:15: Bedside Glucose (Misc Panel) 158H CBC/BMP Laboratory Tests 04/20/19 06:39 FSBS Laboratory Tests Test 04/19/19 16:56 04/19/19 20:32 04/20/19 12:15 Range/Units Bedside Glucose (Misc Panel) 179 121 158 83-110 MG/DL Discharge Medications Scheduled Atorvastatin Calcium (Atorvastatin Calcium) 80 Mg Tablet, 40 MG PO QHS, (Reported) Dabigatran Etexilate Mesylate (Pradaxa) 150 Mg Capsule, 150 MG PO BID Start on Diclofenac Sodium (Voltaren) 1 % Gel, 1 DOSE TOP QID, (Reported) APPLY TO ELBOWS Donepezil HCl (Donepezil HCl) 10 Mg Tablet, 10 MG PO DAILY, (Reported) Ferrous Sulfate (Ferrous Sulfate) 325 Mg Tablet, 325 MG PO BID, (Reported) Glipizide (Glipizide ER) 10 Mg Tab.er.24, 10 MG PO DAILY, (Reported) Insulin Glargine (Lantus) 1 Units/0.01 Ml Susp, 1 DOSE SC QHS, (Reported) PER SLIDING SCALE Insulin Human Lispro (Novolog) 100 U/Ml Inj, 1 DOSE SC ASDIRECTED, (Reported) PER SLIDING SCALE Loratadine (Loratadine) 10 Mg Tablet, 10 MG PO DAILY, (Reported) Metoprolol Succinate (Metoprolol Succinate) 50 Mg Tab.er.24h, 50 MG PO QHS, (Reported) Multivitamins (Thera M Plus Tablet) 1 Tab Tab, 1 TAB PO DAILY, (Reported) [place]-3/Dha/Epa/Fish Oil (Fish Oil EC 1,000 mg Softgel) 1 Cap Cap, 2 CAP PO BID, (Reported) Omeprazole (Omeprazole) 20 Mg Capsule.dr, 20 MG PO DAILY, (Reported) GIVEN PROTONIX AT [place] Sertraline HCl (Sertraline HCl) 100 Mg Tablet, 200 MG PO BID, (Reported) Scheduled PRN Acetaminophen (Acetaminophen) 500 Mg Tablet, 500 MG PO Q4H PRN for PAIN, (Reported) Diclofenac Sodium (Voltaren) 100 Gm Gel..gram., 1 APPLIC TOP QID PRN for PAIN, (Reported) [place] Lidocaine (Lidoderm) 5 % Dis, 1 PATCH TD DAILY PRN for PAIN, (Reported) APPLY TO SHOULDERS AND BACK Polyvinyl Alcohol (Artificial Tears) 1.4 % Ginger, 1 DROP OU QID PRN for DRY EYES, (Reported) Tramadol HCl (Tramadol HCl) 50 Mg Tablet, 50 MG PO Q8H PRN for BACK PAIN, (Reported) Trazodone HCl (Trazodone HCl) 100 Mg Tablet, 100 MG PO QHS PRN for INSOMNIA, (Reported) Allergies Coded Allergies: egg (Verified Allergy, Unknown, 02/24/19) ANAPHYLAXIS SAJI GONZALEZ MD Apr 20, 2019 16:27
[2019-04-20] MEDS: MIRALAX *UNIT DOSE* 17GM PACKET PO SCH (17:53)
[2019-04-20] MEDS: **NOTE PATIENT COMMENT** MISC XX SCH (21:00)
[2019-04-20] MEDS ORDERED: PREPARATION H SUPP (HEMORRHOID) PR SCH (21:00)
[2019-04-20] MEDS: METOPROLOL SUCC (TopROL XL) 50MG **XL** TAB PO SCH (21:00)
[2019-04-20] MEDS: ATORVASTATIN 20 MG TAB PO SCH (21:23)
[2019-04-20] MEDS: DONEPEZIL 5 MG TAB PO SCH (21:24)
[2019-04-21 06:00] VITALS: BP 143/81
[2019-04-21] MEDS: HumaLOG INSULIN (NovoLOG) PER UNIT SC SCH ×2 (08:14→12:41)
[2019-04-21] MEDS: MULTIVITAMINS/MINERALS THERAP 1 TAB PO SCH (08:17)
[2019-04-21] MEDS: LORATADINE 10 MG TAB PO SCH (08:17)
[2019-04-21] MEDS: OMEGA-3 1000MG CAPSULE PO SCH (08:17)
[2019-04-21] MEDS: MIRALAX *UNIT DOSE* 17GM PACKET PO SCH (08:17)
[2019-04-21] MEDS: OMEPRAZOLE 20 MG CAP PO SCH (08:17)
[2019-04-21] MEDS: FERROUS SULFATE 325MG TAB PO SCH (08:17)
[2019-04-21] MEDS: SERTRALINE 100 MG TAB PO SCH (08:17)
[2019-04-21] MEDS ORDERED: HEMO1SUP10 PR (14:44)
== END 2019-04-21 15:05 | disposition home or self-care (01) | DRG 379 ==
LOC: M PCU 16:05 → M MSPAV 04-20 23:13
PROVIDERS: ADMIT Internal Medicine; ATTEND Internal Medicine
PROC: 0DBL8ZX Excision of Transverse Colon, Via Natural or Artificial Opening Endoscopic, Diagnostic (ICD-10-PCS; 2019-04-20)
PROC: 0W3P8ZZ Control Bleeding in Gastrointestinal Tract, Via Natural or Artificial Opening Endoscopic (ICD-10-PCS; 2019-04-20)
PROC: 0DBM8ZX Excision of Descending Colon, Via Natural or Artificial Opening Endoscopic, Diagnostic (ICD-10-PCS; principal; 2019-04-20 12:00)
DX: K31.811 Angiodysplasia of stomach and duodenum with bleeding (principal); I48.91 Unspecified atrial fibrillation; J44.9 Chronic obstructive pulmonary disease, unspecified; N18.3 Chronic kidney disease, stage 3 (moderate); E11.22 Type 2 diabetes mellitus with diabetic chronic kidney disease; I12.9 Hypertensive chronic kidney disease with stage 1 through stage 4 chronic kidney disease, or unspecified chronic kidney disease; E78.5 Hyperlipidemia, unspecified; D12.3 Benign neoplasm of transverse colon; D69.6 Thrombocytopenia, unspecified; Z85.46 Personal history of malignant neoplasm of prostate; Z92.3 Personal history of irradiation; Z79.01 Long term (current) use of anticoagulants; Z87.891 Personal history of nicotine dependence; Z79.4 Long term (current) use of insulin; Z79.899 Other long term (current) drug therapy; Z91.012 Allergy to eggs; Z86.718 Personal history of other venous thrombosis and embolism

== ENCOUNTER → 2019-05-22 | Outpatient (CLI) | payer MEDICARE, OTHER ==
[~2019-05-22] MED LIST changes: +ACET-683 PO; +ATOR80TA59 PO; +GLIP10TA18 PO; +HEMO1SUP10 PR; +LORA-674 PO; +METO1TAB7 PO; +OMEP-218 PO; +SERT-138 PO; +TRAZ-257 PO
[2019-05-22 09:53] LABS: BASO % 0.5 % (0.0-1.0); EOS # 0.2 10^3/uL (0.0-0.5); HEMATOCRIT 41.9 % (42.0-52.0); HEMOGLOBIN 13.8 g/dl (13.5-17.5); LYMPH # 0.8 10^3/uL (1.5-5.0); LYMPH % 13.8 % (24.0-44.0); MEAN CORPUSCULAR HEMOGLOBIN 29.9 pg (27.0-33.0); MEAN CORPUSCULAR HGB CONC 32.9 g/dl (32.0-36.5); MEAN CORPUSCULAR VOLUME 90.7 fl (80.0-96.0); MONO # 0.6 10^3/uL (0.0-0.8); MONO % 9.3 % (0.0-5.0); NEUTROPHILS # 4.3 10^3/uL (1.5-8.5); NEUTROPHILS % 72.2 % (36.0-66.0); PLATELET COUNT, AUTOMATED 131 10^3/uL (150-450); RED BLOOD COUNT 4.62 10^6/uL (4.30-6.10); WHITE BLOOD COUNT 5.9 10^3/uL (4.0-10.0)
[2019-05-22 10:24] LABS: CREATININE FOR GFR 1.81 MG/DL (0.70-1.30)
[2019-05-22 10:25] LABS: GLOMERULAR FILTRATION RATE 38.8 (>42); PERCENT SATURATION 31.2 % (19.7-50.0)
== END ==
LOC: M LAB 09:25
PROVIDERS: ATTEND Internal Medicine Gastroenterology
DX: K62.7 Radiation proctitis (principal); K64.8 Other hemorrhoids

== ENCOUNTER → 2019-07-25 | Outpatient (CLI) | payer MEDICARE, OTHER ==
--- NOTE | 2019-07-25 11:03 | REP ---
RENAL ULTRASOUND WITH DUPLEX DOPPLER EVALUATION OF RENAL ARTERIES: Real-time sonographic evaluation of the kidneys performed. The kidneys are normal in size and echotexture, right kidney measuring 10.1 x 4.5 x 5.7 cm and left kidney 10.3 x 4.6 x 4.9 cm. There is no hydronephrosis bilaterally. A cyst in the mid right kidney measures 2.7 cm in diameter. Two cysts are seen in the lower left kidney both measuring 1.1 cm maximally. Real-time ultrasound evaluation and duplex Doppler interrogation of renal arteries is performed bilaterally. Peak systolic velocity of the abdominal aorta at the level of the renal arteries is 95.8 cm/s. Peak systolic velocity of the main right renal artery is 84 cm/s although the origin of the right renal artery is not visualized. Renal to aortic ratio is 0.88. Resistive indices right kidney are measured in the upper, mid and lower thirds and range between 0.62 and 0.71. Acceleration times range between 0.036 and 0.047. Peak systolic velocity of the main left renal artery distally is 92.3 cm/s. Proximal left renal artery is not visualized due to overlying bowel gas. Resistive indices left kidney range between 0.67 and 0.68. Acceleration times range between 0.028 and 0.033. IMPRESSION: Somewhat limited exam due to bowel gas. However, there is no compelling duplex Doppler sonographic evidence of significant renal artery stenosis. If there is continued clinical concern, further evaluation may be made with MRA or CTA. Electronically Signed by Ponce Leonardo MD 07/25/2019 05:07 P
== END ==
LOC: M RAD 06:26
PROVIDERS: ATTEND Internal Medicine Nephrology
DX: I70.1 Atherosclerosis of renal artery (principal)

== ENCOUNTER → 2019-08-30 | Outpatient (CLI) | payer MEDICARE, OTHER ==
--- NOTE | 2019-08-30 13:47 | REP ---
ULTRASOUND ABDOMEN: Real-time sonographic evaluation of the abdomen is performed. The patient has had a prior cholecystectomy. There is suspected prominence of the common bile duct at 8 mm. The liver demonstrates a cyst in the caudate lobe measuring 1.7 x 1.8 x 2.7 cm. No gross pancreatic mass is seen, evaluation is limited due to overlying bowel gas. The spleen is normal in size with a length of 11.6 cm with no definite intrinsic abnormality. The kidneys are normal in size and echotexture with no hydronephrosis, right kidney measuring 10.1 x 5.0 x 5.3 cm and left kidney 10.5 x 6.0 x 5.1 cm. There is a cyst in the mid right kidney 1.9 x 2.8 x 1.8 cm. There are two cysts in the lower pole of the left kidney measuring 1.5 cm and 1.1 cm in maximum diameter. The visualized abdominal aorta is normal in caliber. Urinary bladder is not well distended and not well evaluated. Ureteral jets are not visualized in the urinary bladder with Doppler color evaluation. There is no ascites. IMPRESSION: Status post cholecystectomy. Cyst in the caudate lobe of the liver. Bilateral renal cysts. No splenomegaly. No free fluid. No gross pancreatic abnormality. Electronically Signed by Ponce Leonardo MD 08/31/2019 09:29 A
== END ==
LOC: M LRY 08:32
PROVIDERS: ATTEND Internal Medicine Hematology & Oncology
DX: D69.6 Thrombocytopenia, unspecified (principal)

== ENCOUNTER → 2021-02-02 | Outpatient (REF) | payer MEDICARE, OTHER ==
[~2021-02-02] MED LIST changes: +BUSP15TA47 PO; +FURO20TA2 PO; +GLUC1KIT IM; +JARD1TAB3 PO; +SERT50TA29 PO; +SPIR-10 PO; +TRUL0.5I
== END ==
LOC: M WUC 19:22
PROVIDERS: ATTEND Physician Assistant
DX: R31.9 Hematuria, unspecified (principal)

== ENCOUNTER → 2021-02-03 | Outpatient (CLI) | payer MEDICARE, OTHER ==
--- NOTE | 2021-02-03 12:28 | REP ---
INDICATION: LOW BACK PAIN, HEMATURIA COMPARISON: None. TECHNIQUE: AP, lateral, bilateral oblique, and coned-down views of the lumbar spine. FINDINGS: Lordosis maintained. No acute fracture/compression injury or subluxation. Advanced multilevel degenerative changes include endplate sclerosis, disc space narrowing, osteophytosis, and facet arthropathy. IMPRESSION: 1. Advanced multilevel degenerative spondylosis. 2. No evidence for acute fracture/compression injury or subluxation. <Electronically signed by Silvio Narvaez > 02/03/21 [id number]
== END ==
LOC: M WUC 12:04
PROVIDERS: ATTEND Physician Assistant
DX: M47.817 Spondylosis without myelopathy or radiculopathy, lumbosacral region (principal); R31.9 Hematuria, unspecified

== ENCOUNTER → 2021-02-20 | Outpatient (CLI) | payer MEDICARE, OTHER ==
[2021-02-20 15:24] LABS: BASO % 0.4 % (0.0-1.0); EOS # 0.3 10^3/uL (0.0-0.5); EOS % 3.1 % (0.0-3.0); HEMATOCRIT 41.3 % (42.0-52.0); LYMPH # 0.7 10^3/uL (1.5-5.0); MEAN CORPUSCULAR HGB CONC 31.5 g/dl (32.0-36.5); MONO # 0.7 10^3/uL (0.0-0.8); MONO % 8.3 % (2.0-8.0); NEUTROPHILS # 6.7 10^3/uL (1.5-8.5); NEUTROPHILS % 79.6 % (36.0-66.0); PLATELET COUNT, AUTOMATED 174 10^3/uL (150-450); RED BLOOD COUNT 4.64 10^6/uL (4.30-6.10); WHITE BLOOD COUNT 8.5 10^3/uL (4.0-10.0)
[2021-02-20 15:52] LABS: C REACTIVE PROTEIN QUANTITATIV 5.12 MG/DL (0.00-0.30); RHEUMATOID FACTOR QUANT < 10.0 IU/ML (<15.0)
== END ==
LOC: M WUC 12:12
PROVIDERS: ATTEND Orthopaedic Surgery
DX: M50.30 Other cervical disc degeneration, unspecified cervical region (principal)

== ENCOUNTER → 2021-05-07 | Outpatient (CLI) | payer MEDICARE, OTHER ==
[~2021-05-07] MED LIST changes: +OMEP-173 PO; -OMEP-218 PO
[2021-05-07 16:14] LABS: TOTAL PROTEIN 6.9 GM/DL (6.4-8.2)
[2021-05-07 16:35] LABS: FOLATE > 24.0 NG/ML (>5.4); VITAMIN B12 LEVEL 602 PG/ML (247-911)
== END ==
LOC: M WUC 14:00
PROVIDERS: ATTEND Psychiatry & Neurology Neurology
DX: E53.8 Deficiency of other specified B group vitamins (principal); G62.9 Polyneuropathy, unspecified

== ENCOUNTER → 2021-07-19 | Outpatient (REF) | payer MEDICARE, OTHER ==
[~2021-07-19] MED LIST changes: +CARB25TA9 PO
== END ==
LOC: M WUC 19:34 → EEVIPCON 19:34
PROVIDERS: ATTEND Physician Assistant
DX: L02.31 Cutaneous abscess of buttock (principal)

== ENCOUNTER 2021-09-19 11:31 | Inpatient (IN) | payer MEDICARE, OTHER ==
[~2021-09-19] VITALS: Ht 160 cm; Wt 54.9 kg
[~2021-09-19 11:31] MED LIST changes: +FISH10005 PO; -FISH7.5C PO
[2021-09-19] MEDS ORDERED: LIDOCAINE 2% 5ML JELLY UROJET TOP ONE (12:55)
[2021-09-19 13:38] LABS: BASO % 0.2 % (0.0-1.0); EOS # 0.3 10^3/uL (0.0-0.5); EOS % 3.4 % (0.0-3.0); HEMATOCRIT 29.1 % (42.0-52.0); HEMOGLOBIN 8.7 g/dl (13.5-17.5); LYMPH # 0.6 10^3/uL (1.5-5.0); LYMPH % 6.7 % (24.0-44.0); MEAN CORPUSCULAR HEMOGLOBIN 24.7 pg (27.0-33.0); MEAN CORPUSCULAR HGB CONC 29.9 g/dl (32.0-36.5); MEAN CORPUSCULAR VOLUME 82.7 fl (80.0-96.0); MONO # 0.6 10^3/uL (0.0-0.8); NEUTROPHILS # 7.9 10^3/uL (1.5-8.5); NEUTROPHILS % 83.1 % (36.0-66.0); PLATELET COUNT, AUTOMATED 259 10^3/uL (150-450); RED BLOOD COUNT 3.52 10^6/uL (4.30-6.10); WHITE BLOOD COUNT 9.5 10^3/uL (4.0-10.0)
[2021-09-19 13:51] LABS: INR 1.48; PARTIAL THROMBOPLASTIN TIME 36.9 SECONDS (25.9-37.0); PROTHROMBIN TIME 18.3 SECONDS (12.7-14.5)
[2021-09-19 14:02] LABS: ALBUMIN 2.2 GM/DL (3.2-5.2); ALT/SGPT 28 U/L (12-78); BILIRUBIN,DIRECT < 0.1 MG/DL (0.0-0.2); BILIRUBIN,TOTAL 0.2 MG/DL (0.2-1.0); BLOOD UREA NITROGEN 28 MG/DL (7-18); CALCIUM LEVEL 8.7 MG/DL (8.8-10.2); CARBON DIOXIDE LEVEL 27 MEQ/L (21-32); CHLORIDE LEVEL 105 MEQ/L (98-107); CREATININE FOR GFR 1.24 MG/DL (0.70-1.30); GLOMERULAR FILTRATION RATE 59.6 (>35); GLUCOSE, FASTING 225 MG/DL (70-100); POTASSIUM SERUM 4.4 MEQ/L (3.5-5.1); SODIUM LEVEL 138 MEQ/L (136-145); TOTAL PROTEIN 5.8 GM/DL (6.4-8.2)
[2021-09-19] MEDS ORDERED: NS 1,000 ML IV SCH (15:50)
[2021-09-19] MEDS ORDERED: cefTRIAXone SOD 1 GM in D5W MINI-BAG PLUS 50 ML IV ONE (16:00)
[2021-09-19] MEDS ORDERED: MOM 30ML SUSPENSION UDC PO PRN (18:35)
[2021-09-19] MEDS ORDERED: MAALOX 30 ML SUSP *UDC PO PRN (18:35)
[2021-09-19] MEDS ORDERED: GLUCOSE 4GM CHEW TABLET PO PRN (18:35)
[2021-09-19] MEDS ORDERED: DEXTROSE 50% 50 ML SYRINGE IV PRN (18:35)
[2021-09-19] MEDS ORDERED: GLUCAGON INJ 1MG VIAL SC PRN (18:35)
[2021-09-19] MEDS ORDERED: ISOVUE-370 76% 100ML VIAL As Ordered ONE (18:40)
[2021-09-19] MEDS: NS 1,000 ML IV SCH (20:20)
[2021-09-19 20:26] LABS: RSV AMPLIFICATION NEGATIVE (NEGATIVE)
[2021-09-19] MEDS ORDERED: OYST500T12 PO (21:54)
[2021-09-19] MEDS ORDERED: METO1TAB32 PO (21:54)
[2021-09-19] MEDS ORDERED: FERR32TA PO (21:54)
[2021-09-19] MEDS ORDERED: PANT-23 PO (21:54)
[2021-09-19] MEDS ORDERED: MIRA3350 PO (21:54)
[2021-09-19] MEDS ORDERED: BISA5TAB15 PO (21:54)
[2021-09-19] MEDS ORDERED: ELIQ2.5T PO (21:54)
[2021-09-19] MEDS ORDERED: FLOM0.4C39 PO (21:56)
[2021-09-19] MEDS ORDERED: EUCE1CRE2 TOP (21:56)
[2021-09-19] MEDS ORDERED: HOME MED LIST COMPLETE! XX SCH (22:00)
[2021-09-19] MEDS: INSULIN LISPRO (NovoLOG) PER UNIT SC SCH (22:13)
[2021-09-19] MEDS ORDERED: BISACODYL 5 MG TAB PO PRN (22:15)
[2021-09-19] MEDS ORDERED: POLYVINYL ALCOHOL OPHTH SOLN 15 ML(LIQUITEARS) OU PRN (22:15)
[2021-09-19 22:35] VITALS: BP 117/65
[2021-09-20 00:12] LABS: BASO % 0.3 % (0.0-1.0); EOS # 0.3 10^3/uL (0.0-0.5); EOS % 2.9 % (0.0-3.0); HEMATOCRIT 30.4 % (42.0-52.0); HEMOGLOBIN 8.9 g/dl (13.5-17.5); LYMPH # 0.9 10^3/uL (1.5-5.0); LYMPH % 8.3 % (24.0-44.0); MEAN CORPUSCULAR HEMOGLOBIN 24.6 pg (27.0-33.0); MEAN CORPUSCULAR HGB CONC 29.3 g/dl (32.0-36.5); MONO # 0.7 10^3/uL (0.0-0.8); MONO % 6.4 % (2.0-8.0); NEUTROPHILS # 8.3 10^3/uL (1.5-8.5); NEUTROPHILS % 81.1 % (36.0-66.0); PLATELET COUNT, AUTOMATED 289 10^3/uL (150-450); RED BLOOD COUNT 3.62 10^6/uL (4.30-6.10); WHITE BLOOD COUNT 10.2 10^3/uL (4.0-10.0)
[2021-09-20] MEDS: SERTRALINE HCL 50 MG TAB PO SCH ×3 (00:13→20:18)
[2021-09-20] MEDS: traZODone 100 MG TAB PO PRN (00:13)
[2021-09-20] MEDS: SINEMET 25-100 MG TAB PO SCH ×5 (00:13→20:18)
[2021-09-20] MEDS: LEVEMIR (INSULIN DETEMIR) 1 UNITS/0.01ML SC SCH ×2 (00:14→20:19)
[2021-09-20] MEDS: busPIRone 5 MG TAB PO SCH ×3 (00:17→20:18)
[2021-09-20] MEDS: NS 1,000 ML IV SCH ×2 (05:00→14:41)
[2021-09-20 05:56] VITALS: BP_SYST 112; BP_SYST 114; BP_SYST 87; BP_DIAS 54; BP_DIAS 62; BP_DIAS 66
[2021-09-20 06:29] LABS: BASO % 0.3 % (0.0-1.0); EOS # 0.2 10^3/uL (0.0-0.5); EOS % 2.2 % (0.0-3.0); HEMATOCRIT 30.3 % (42.0-52.0); HEMOGLOBIN 8.9 g/dl (13.5-17.5); LYMPH # 0.6 10^3/uL (1.5-5.0); MEAN CORPUSCULAR HEMOGLOBIN 24.9 pg (27.0-33.0); MEAN CORPUSCULAR HGB CONC 29.4 g/dl (32.0-36.5); MEAN CORPUSCULAR VOLUME 84.6 fl (80.0-96.0); MONO # 0.6 10^3/uL (0.0-0.8); MONO % 5.9 % (2.0-8.0); NEUTROPHILS % 84.8 % (36.0-66.0); PLATELET COUNT, AUTOMATED 276 10^3/uL (150-450); RED BLOOD COUNT 3.58 10^6/uL (4.30-6.10); WHITE BLOOD COUNT 10.6 10^3/uL (4.0-10.0)
[2021-09-20 07:03] LABS: CALCIUM LEVEL 8.3 MG/DL (8.8-10.2); CREATININE FOR GFR 1.3 MG/DL (0.70-1.30); GLOMERULAR FILTRATION RATE 56.4 (>35); MAGNESIUM LEVEL 2.1 MG/DL (1.8-2.4); POTASSIUM SERUM 4.2 MEQ/L (3.5-5.1)
[2021-09-20] MEDS: INSULIN LISPRO (NovoLOG) PER UNIT SC SCH ×4 (07:30→20:19)
[2021-09-20] MEDS: OMEGA-3 1000MG CAPSULE PO SCH ×2 (08:37→20:18)
[2021-09-20] MEDS: PANTOPRAZOLE 40MG TAB (PROTONIX) PO SCH (08:37)
[2021-09-20] MEDS: DONEPEZIL 5 MG TAB PO SCH (08:37)
[2021-09-20] MEDS: ACETAMINOPHEN TAB 650MG DOSE (2X325MG) PO PRN (08:37)
[2021-09-20] MEDS: FERROUS GLUCONATE 324 MG TAB PO SCH (08:37)
[2021-09-20] MEDS: LORATADINE 10 MG TAB PO SCH (08:37)
[2021-09-20] MEDS: MULTIVITAMINS/MINERALS THERAP 1 TAB PO SCH (08:37)
[2021-09-20] MEDS: MIRALAX *UNIT DOSE* 17GM PACKET PO SCH (08:38)
[2021-09-20] MEDS: METOPROLOL SUCC *XL* 25MG TAB (TopROL *XL*) PO SCH (08:45)
[2021-09-20] MEDS ORDERED: TAMSULOSIN 0.4 MG CAP PO SCH (09:00)
[2021-09-20 12:37] LABS: HEMATOCRIT 26.7 % (42.0-52.0); HEMOGLOBIN 8.1 g/dl (13.5-17.5)
[2021-09-20 14:00] VITALS: BP 104/56
[2021-09-20] MEDS ORDERED: cefTRIAXone SOD 1 GM in D5W MINI-BAG PLUS 50 ML IV SCH (16:00)
[2021-09-20 17:58] LABS: HEMATOCRIT 27.6 % (42.0-52.0); HEMOGLOBIN 8.2 g/dl (13.5-17.5)
[2021-09-20 21:35] VITALS: BP 119/65
[2021-09-21] VITALS (8 sets, daily range): BP systolic 112–132; BP diastolic 57–67
[2021-09-21 00:22] LABS: HEMATOCRIT 25.6 % (42.0-52.0); HEMOGLOBIN 7.4 g/dl (13.5-17.5)
[2021-09-21] MEDS: NS 1,000 ML IV SCH (00:49)
[2021-09-21 06:28] LABS: BASO % 0.2 % (0.0-1.0); EOS # 0.3 10^3/uL (0.0-0.5); EOS % 3.7 % (0.0-3.0); HEMATOCRIT 26.5 % (42.0-52.0); HEMOGLOBIN 7.7 g/dl (13.5-17.5); LYMPH # 0.7 10^3/uL (1.5-5.0); LYMPH % 8.9 % (24.0-44.0); MEAN CORPUSCULAR HEMOGLOBIN 24.5 pg (27.0-33.0); MEAN CORPUSCULAR HGB CONC 29.1 g/dl (32.0-36.5); MEAN CORPUSCULAR VOLUME 84.4 fl (80.0-96.0); MONO # 0.5 10^3/uL (0.0-0.8); MONO % 6.2 % (2.0-8.0); NEUTROPHILS # 6.7 10^3/uL (1.5-8.5); NEUTROPHILS % 80.3 % (36.0-66.0); PLATELET COUNT, AUTOMATED 244 10^3/uL (150-450); RED BLOOD COUNT 3.14 10^6/uL (4.30-6.10); WHITE BLOOD COUNT 8.4 10^3/uL (4.0-10.0)
[2021-09-21 06:49] LABS: CALCIUM LEVEL 8.1 MG/DL (8.8-10.2); CREATININE FOR GFR 1.28 MG/DL (0.70-1.30); GLOMERULAR FILTRATION RATE 57.4 (>35); POTASSIUM SERUM 4.4 MEQ/L (3.5-5.1)
[2021-09-21] MEDS ORDERED: LevoFLOXacin 500 MG TABLET PO ONE (08:00)
[2021-09-21] MEDS: DONEPEZIL 5 MG TAB PO SCH (08:30)
[2021-09-21] MEDS: busPIRone 5 MG TAB PO SCH ×2 (08:30→21:30)
[2021-09-21] MEDS: SINEMET 25-100 MG TAB PO SCH ×4 (08:30→21:27)
[2021-09-21] MEDS: INSULIN LISPRO (NovoLOG) PER UNIT SC SCH ×4 (08:30→21:00)
[2021-09-21] MEDS: ACETAMINOPHEN TAB 650MG DOSE (2X325MG) PO PRN (08:30)
[2021-09-21] MEDS: FERROUS GLUCONATE 324 MG TAB PO SCH (08:30)
[2021-09-21] MEDS: PANTOPRAZOLE 40MG TAB (PROTONIX) PO SCH (08:30)
[2021-09-21] MEDS: OMEGA-3 1000MG CAPSULE PO SCH ×2 (08:31→21:27)
[2021-09-21] MEDS: LORATADINE 10 MG TAB PO SCH (08:31)
[2021-09-21] MEDS: MULTIVITAMINS/MINERALS THERAP 1 TAB PO SCH (08:31)
[2021-09-21] MEDS: METOPROLOL SUCC *XL* 25MG TAB (TopROL *XL*) PO SCH (08:31)
[2021-09-21] MEDS: MIRALAX *UNIT DOSE* 17GM PACKET PO SCH (08:31)
[2021-09-21] MEDS: SERTRALINE HCL 50 MG TAB PO SCH ×2 (08:32→21:27)
[2021-09-21] MEDS: LEVEMIR (INSULIN DETEMIR) 1 UNITS/0.01ML SC SCH (21:27)
[2021-09-21] MEDS: traZODone 100 MG TAB PO PRN (21:30)
[2021-09-22] MEDS: LevoFLOXacin 250 MG TABLET PO SCH (05:40)
[2021-09-22 05:46] VITALS: BP 120/64
[2021-09-22 06:19] LABS: BASO % 0.4 % (0.0-1.0); EOS # 0.4 10^3/uL (0.0-0.5); EOS % 5.7 % (0.0-3.0); HEMATOCRIT 32.5 % (42.0-52.0); HEMOGLOBIN 9.6 g/dl (13.5-17.5); MEAN CORPUSCULAR HEMOGLOBIN 25.4 pg (27.0-33.0); MEAN CORPUSCULAR HGB CONC 29.5 g/dl (32.0-36.5); MONO # 0.6 10^3/uL (0.0-0.8); MONO % 7.5 % (2.0-8.0); NEUTROPHILS # 5.3 10^3/uL (1.5-8.5); NEUTROPHILS % 72.4 % (36.0-66.0); PLATELET COUNT, AUTOMATED 246 10^3/uL (150-450); RED BLOOD COUNT 3.78 10^6/uL (4.30-6.10); WHITE BLOOD COUNT 7.4 10^3/uL (4.0-10.0)
[2021-09-22 06:41] LABS: BLOOD UREA NITROGEN 23 MG/DL (7-18); CALCIUM LEVEL 8.4 MG/DL (8.8-10.2); CARBON DIOXIDE LEVEL 29 MEQ/L (21-32); CHLORIDE LEVEL 109 MEQ/L (98-107); CREATININE FOR GFR 1.19 MG/DL (0.70-1.30); GLOMERULAR FILTRATION RATE > 60.0 (>35); GLUCOSE, FASTING 94 MG/DL (70-100); MAGNESIUM LEVEL 2.1 MG/DL (1.8-2.4); POTASSIUM SERUM 4.5 MEQ/L (3.5-5.1); SODIUM LEVEL 141 MEQ/L (136-145)
[2021-09-22] MEDS: INSULIN LISPRO (NovoLOG) PER UNIT SC SCH ×4 (07:30→20:52)
[2021-09-22] MEDS: FERROUS GLUCONATE 324 MG TAB PO SCH (08:46)
[2021-09-22] MEDS: PANTOPRAZOLE 40MG TAB (PROTONIX) PO SCH (08:46)
[2021-09-22] MEDS: SERTRALINE HCL 50 MG TAB PO SCH ×2 (08:46→20:50)
[2021-09-22] MEDS: busPIRone 5 MG TAB PO SCH ×2 (08:47→20:51)
[2021-09-22] MEDS: MIRALAX *UNIT DOSE* 17GM PACKET PO SCH (08:47)
[2021-09-22] MEDS: MULTIVITAMINS/MINERALS THERAP 1 TAB PO SCH (08:47)
[2021-09-22] MEDS: METOPROLOL SUCC *XL* 25MG TAB (TopROL *XL*) PO SCH (08:47)
[2021-09-22] MEDS: SINEMET 25-100 MG TAB PO SCH ×4 (08:47→20:50)
[2021-09-22] MEDS: DONEPEZIL 5 MG TAB PO SCH (08:47)
[2021-09-22] MEDS: OMEGA-3 1000MG CAPSULE PO SCH ×2 (08:47→20:49)
[2021-09-22] MEDS: LORATADINE 10 MG TAB PO SCH (08:47)
[2021-09-22 09:00] VITALS: BP_SYST 120; BP_SYST 126; BP_SYST 127; BP_DIAS 65; BP_DIAS 66; BP_DIAS 67
[2021-09-22 11:07] LABS: HEMATOCRIT 34.9 % (42.0-52.0); HEMOGLOBIN 10.5 g/dl (13.5-17.5)
[2021-09-22 14:00] VITALS: BP_SYST 114; BP_SYST 118; BP_SYST 119; BP_SYST 124; BP_DIAS 59; BP_DIAS 62; BP_DIAS 65; BP_DIAS 68
[2021-09-22] MEDS: LEVEMIR (INSULIN DETEMIR) 1 UNITS/0.01ML SC SCH (20:52)
[2021-09-22 21:39] VITALS: BP 111/59
[2021-09-23 05:12] VITALS: BP 113/61
[2021-09-23] MEDS: LevoFLOXacin 250 MG TABLET PO SCH (05:33)
[2021-09-23 06:27] LABS: BASO % 0.3 % (0.0-1.0); EOS # 0.3 10^3/uL (0.0-0.5); EOS % 3.4 % (0.0-3.0); HEMATOCRIT 33.2 % (42.0-52.0); HEMOGLOBIN 10.1 g/dl (13.5-17.5); LYMPH # 0.7 10^3/uL (1.5-5.0); LYMPH % 8.4 % (24.0-44.0); MEAN CORPUSCULAR HEMOGLOBIN 25.5 pg (27.0-33.0); MEAN CORPUSCULAR HGB CONC 30.4 g/dl (32.0-36.5); MEAN CORPUSCULAR VOLUME 83.8 fl (80.0-96.0); MONO # 0.5 10^3/uL (0.0-0.8); MONO % 6.4 % (2.0-8.0); NEUTROPHILS # 6.3 10^3/uL (1.5-8.5); NEUTROPHILS % 80.6 % (36.0-66.0); PLATELET COUNT, AUTOMATED 256 10^3/uL (150-450); RED BLOOD COUNT 3.96 10^6/uL (4.30-6.10); WHITE BLOOD COUNT 7.9 10^3/uL (4.0-10.0)
[2021-09-23 06:51] LABS: BLOOD UREA NITROGEN 22 MG/DL (7-18); CALCIUM LEVEL 8.3 MG/DL (8.8-10.2); CARBON DIOXIDE LEVEL 27 MEQ/L (21-32); CHLORIDE LEVEL 107 MEQ/L (98-107); CREATININE FOR GFR 1.05 MG/DL (0.70-1.30); GLOMERULAR FILTRATION RATE > 60.0 (>35); GLUCOSE, FASTING 80 MG/DL (70-100); POTASSIUM SERUM 4.2 MEQ/L (3.5-5.1); SODIUM LEVEL 139 MEQ/L (136-145)
[2021-09-23] MEDS: INSULIN LISPRO (NovoLOG) PER UNIT SC SCH ×2 (07:30→12:40)
[2021-09-23] MEDS: MIRALAX *UNIT DOSE* 17GM PACKET PO SCH (08:58)
[2021-09-23] MEDS: OMEGA-3 1000MG CAPSULE PO SCH (08:58)
[2021-09-23] MEDS: busPIRone 5 MG TAB PO SCH (08:58)
[2021-09-23] MEDS: DONEPEZIL 5 MG TAB PO SCH (08:59)
[2021-09-23] MEDS: SINEMET 25-100 MG TAB PO SCH ×2 (08:59→12:39)
[2021-09-23] MEDS: LORATADINE 10 MG TAB PO SCH (08:59)
[2021-09-23] MEDS: FERROUS GLUCONATE 324 MG TAB PO SCH (08:59)
[2021-09-23] MEDS: SERTRALINE HCL 50 MG TAB PO SCH (08:59)
[2021-09-23] MEDS: MULTIVITAMINS/MINERALS THERAP 1 TAB PO SCH (08:59)
[2021-09-23] MEDS: PANTOPRAZOLE 40MG TAB (PROTONIX) PO SCH (08:59)
[2021-09-23 09:00] VITALS: BP 114/66
[2021-09-23] MEDS: METOPROLOL SUCC *XL* 25MG TAB (TopROL *XL*) PO SCH (09:00)
[2021-09-23] MEDS ORDERED: LEVO1TAB38 PO (11:37)
== END 2021-09-23 13:31 | disposition home health service (06) | DRG 699 ==
LOC: EDBD 11:31 → M ED 11:31 → M ED INP 18:34 → ENRESERV 21:44 → M MSPAV 22:35
PROVIDERS: ADMIT Internal Medicine; ATTEND Internal Medicine
PROC: 30233N1 Transfusion of Nonautologous Red Blood Cells into Peripheral Vein, Percutaneous Approach (ICD-10-PCS; principal; 2021-09-21)
DX: T83.511A Infection and inflammatory reaction due to indwelling urethral catheter, initial encounter (principal); D68.32 Hemorrhagic disorder due to extrinsic circulating anticoagulants; F02.80 Dementia in other diseases classified elsewhere, unspecified severity, without behavioral disturbance, psychotic disturbance, mood disturbance, and anxiety; I48.91 Unspecified atrial fibrillation; E78.5 Hyperlipidemia, unspecified; I12.9 Hypertensive chronic kidney disease with stage 1 through stage 4 chronic kidney disease, or unspecified chronic kidney disease; N18.30 Chronic kidney disease, stage 3 unspecified; E11.22 Type 2 diabetes mellitus with diabetic chronic kidney disease; R53.83 Other fatigue; R63.4 Abnormal weight loss; L89.152 Pressure ulcer of sacral region, stage 2; E86.0 Dehydration; I95.1 Orthostatic hypotension; R53.1 Weakness; G31.83 Neurocognitive disorder with Lewy bodies; N40.0 Benign prostatic hyperplasia without lower urinary tract symptoms; F32.A Depression, unspecified; F41.9 Anxiety disorder, unspecified; D50.9 Iron deficiency anemia, unspecified; B96.5 Pseudomonas (aeruginosa) (mallei) (pseudomallei) as the cause of diseases classified elsewhere; Z74.09 Other reduced mobility; Z74.1 Need for assistance with personal care; Z92.21 Personal history of antineoplastic chemotherapy; Z98.41 Cataract extraction status, right eye; Z79.01 Long term (current) use of anticoagulants; Z98.42 Cataract extraction status, left eye; Z92.3 Personal history of irradiation; Z90.49 Acquired absence of other specified parts of digestive tract; Z85.46 Personal history of malignant neoplasm of prostate; Z79.4 Long term (current) use of insulin; Z79.899 Other long term (current) drug therapy; Z91.012 Allergy to eggs; Y84.6 Urinary catheterization as the cause of abnormal reaction of the patient, or of later complication, without mention of misadventure at the time of the procedure

== ENCOUNTER → 2021-10-23 | Outpatient (CLI) | payer MEDICARE, OTHER ==
[~2021-10-23] MED LIST changes: +BISA5TAB15 PO; +ELIQ2.5T PO; +EUCE1CRE2 TOP; +FERR32TA PO; +FLOM0.4C39 PO; +LEVO1TAB38 PO; +METO1TAB32 PO; +MIRA3350 PO; +OYST500T12 PO; +PANT-23 PO
[2021-10-23 19:59] LABS: BASO # 0.1 10^3/uL (0.0-0.2); BASO % 0.3 % (0.0-1.0); EOS # 0.6 10^3/uL (0.0-0.5); EOS % 3.6 % (0.0-3.0); HEMATOCRIT 39.5 % (42.0-52.0); HEMOGLOBIN 11.6 g/dl (13.5-17.5); LYMPH # 1.4 10^3/uL (1.5-5.0); LYMPH % 8.3 % (24.0-44.0); MEAN CORPUSCULAR HEMOGLOBIN 23.8 pg (27.0-33.0); MEAN CORPUSCULAR HGB CONC 29.4 g/dl (32.0-36.5); MEAN CORPUSCULAR VOLUME 80.9 fl (80.0-96.0); MONO % 6.2 % (2.0-8.0); NEUTROPHILS # 13.3 10^3/uL (1.5-8.5); NEUTROPHILS % 80.6 % (36.0-66.0); PLATELET COUNT, AUTOMATED 325 10^3/uL (150-450); RED BLOOD COUNT 4.88 10^6/uL (4.30-6.10); WHITE BLOOD COUNT 16.6 10^3/uL (4.0-10.0)
[2021-10-23 20:17] LABS: INR 1.43; PROTHROMBIN TIME 17.9 SECONDS (12.7-14.5)
[2021-10-23 20:44] LABS: ALBUMIN 2.5 GM/DL (3.2-5.2); ALT/SGPT 28 U/L (12-78); BILIRUBIN,TOTAL 0.3 MG/DL (0.2-1.0); BLOOD UREA NITROGEN 29 MG/DL (7-18); CARBON DIOXIDE LEVEL 24 MEQ/L (21-32); CHLORIDE LEVEL 104 MEQ/L (98-107); CHOLESTEROL LEVEL 158 MG/DL (<200); CHOLESTEROL RISK RATIO 3.853 (<5); CREATININE FOR GFR 1.63 MG/DL (0.70-1.30); FERRITIN 90 NG/ML (26-388); FREE T3 1.2 PG/ML (2.2-4.0); FREE T4 0.83 NG/DL (0.76-1.46); GLOMERULAR FILTRATION RATE 43.4 (>35); GLUCOSE, FASTING 182 MG/DL (70-100); HDL CHOLESTEROL 41 MG/DL (>40); IRON (FE) 17 UG/DL (65-175); LDL CHOLESTEROL 96 MG/DL (<100); NON-HDL-C 117 MG/DL; NT-PRO BNP 266 PG/ML (<450); PERCENT SATURATION 6.9 % (19.7-50.0); POTASSIUM SERUM 4.2 MEQ/L (3.5-5.1); SODIUM LEVEL 137 MEQ/L (136-145); TOTAL IRON BINDING CAPACITY 248 UG/DL (250-450); TOTAL PROTEIN 6.7 GM/DL (6.4-8.2); TRIGLYCERIDES LEVEL 103 MG/DL (<150)
[2021-10-23 21:19] LABS: FOLATE > 24.0 NG/ML (>5.4); VITAMIN B12 LEVEL 843 PG/ML (247-911)
== END ==
LOC: M WUC 15:19
PROVIDERS: ATTEND Family Medicine
DX: I48.91 Unspecified atrial fibrillation (principal); N18.32 Chronic kidney disease, stage 3b; D64.9 Anemia, unspecified; Z79.899 Other long term (current) drug therapy

== ENCOUNTER → 2021-10-30 | Outpatient (REF) | payer MEDICARE, OTHER ==
[2021-10-30 21:18] LABS: APPEARANCE, URINE MANUAL HAZY (CLEAR); COLOR, URINE MANUAL YELLOW (YELLOW); PH,URINE MAN 6.5 UNITS (5.0 - 7.0); PROTEIN, URINE MANUAL 1+ mg/dL (NEGATIVE)
[2021-10-30 21:19] LABS: BILIRUBIN, URINE MANUAL NEGATIVE (NEGATIVE); BLOOD URINE MANUAL POSITIVE (NEGATIVE); GLUCOSE, URINE (UA) MANUAL 4+(1000 MG/DL) mg/dL (NEGATIVE); KETONE, URINE MANUAL NEGATIVE (NEGATIVE); LEUKOCYTE ESTERASE, URINE MAN POSITIVE (NEGATIVE); NITRITE, URINE MANUAL NEGATIVE (NEGATIVE); UROBILINOGEN, URINE MANUAL NORMAL (NORMAL)
[2021-10-30 21:28] LABS: RBC, URINE TNTC /hpf (0-3); SQUAMOUS EPITHELIAL CELL URINE SMALL AMOUNT /hpf (SMALL AMT); WBC, URINE TNTC /hpf (0-3)
[2021-10-30 21:29] LABS: BACTERIA, URINE SMALL AMOUNT; HYALINE CAST, URINE NONE SEEN /lpf (0-1)
== END ==
LOC: M LAB REF 16:19
PROVIDERS: ATTEND Registered Nurse
DX: N39.0 Urinary tract infection, site not specified (principal)

== ENCOUNTER → 2021-10-31 | Outpatient (REF) | payer MEDICARE, OTHER ==
[2021-10-31 13:37] LABS: HEMATOCRIT 36.7 % (42.0-52.0); HEMOGLOBIN 10.8 g/dl (13.5-17.5); MEAN CORPUSCULAR HGB CONC 29.4 g/dl (32.0-36.5); MEAN CORPUSCULAR VOLUME 78.1 fl (80.0-96.0); PLATELET COUNT, AUTOMATED 330 10^3/uL (150-450); WHITE BLOOD COUNT 10.2 10^3/uL (4.0-10.0)
[2021-10-31 14:22] LABS: ALBUMIN 2.4 GM/DL (3.2-5.2); BILIRUBIN,TOTAL 0.3 MG/DL (0.2-1.0); CALCIUM LEVEL 8.6 MG/DL (8.8-10.2); CREATININE FOR GFR 1.47 MG/DL (0.70-1.30); GLOMERULAR FILTRATION RATE 48.9 (>35); POTASSIUM SERUM 4.4 MEQ/L (3.5-5.1); TOTAL PROTEIN 6.6 GM/DL (6.4-8.2)
== END ==
LOC: M LABWUC 11:31
PROVIDERS: ATTEND Registered Nurse
DX: N39.0 Urinary tract infection, site not specified (principal)

== ENCOUNTER → 2021-11-17 | Outpatient (REF) | payer MEDICARE, OTHER ==
[2021-11-17 16:40] LABS: APPEARANCE, URINE MANUAL CLEAR (CLEAR); COLOR, URINE MANUAL YELLOW (YELLOW)
[2021-11-17 16:41] LABS: BILIRUBIN, URINE MANUAL NEGATIVE (NEGATIVE); BLOOD URINE MANUAL POSITIVE (NEGATIVE); GLUCOSE, URINE (UA) MANUAL 4+(1000 MG/DL) mg/dL (NEGATIVE); KETONE, URINE MANUAL NEGATIVE (NEGATIVE); LEUKOCYTE ESTERASE, URINE MAN POSITIVE (NEGATIVE); NITRITE, URINE MANUAL NEGATIVE (NEGATIVE); PH,URINE MAN 6.5 UNITS (5.0 - 7.0); PROTEIN, URINE MANUAL TRACE mg/dL (NEGATIVE); UROBILINOGEN, URINE MANUAL NORMAL (NORMAL)
[2021-11-17 17:22] LABS: ALBUMIN 2.8 GM/DL (3.2-5.2); BILIRUBIN,TOTAL 0.3 MG/DL (0.2-1.0); CALCIUM LEVEL 9.5 MG/DL (8.8-10.2); CREATININE FOR GFR 1.48 MG/DL (0.70-1.30); GLOMERULAR FILTRATION RATE 48.6 (>35); POTASSIUM SERUM 5.1 MEQ/L (3.5-5.1); TOTAL PROTEIN 6.9 GM/DL (6.4-8.2)
[2021-11-17 17:24] LABS: WBC, URINE 15-20 /hpf (0-3)
[2021-11-17 17:25] LABS: BACTERIA, URINE SMALL AMOUNT; HYALINE CAST, URINE NONE SEEN /lpf (0-1); MUCUS, URINE SMALL AMOUNT (NEGATIVE); SQUAMOUS EPITHELIAL CELL URINE SMALL AMOUNT /hpf (SMALL AMT)
== END ==
LOC: M WUC 16:09
PROVIDERS: ATTEND Registered Nurse
DX: N39.0 Urinary tract infection, site not specified (principal)

== ENCOUNTER → 2021-11-20 | Outpatient (CLI) | payer MEDICARE, OTHER | LOC: M RAD 10:46 | PROVIDERS: ATTEND Physician Assistant | DX: C61 Malignant neoplasm of prostate (principal) ==

== ENCOUNTER → 2021-11-28 | Outpatient (CLI) | payer MEDICARE, OTHER ==
[2021-11-28 17:14] LABS: HEMATOCRIT 41.8 % (42.0-52.0); HEMOGLOBIN 12.3 g/dl (13.5-17.5); MEAN CORPUSCULAR HEMOGLOBIN 23.1 pg (27.0-33.0); MEAN CORPUSCULAR HGB CONC 29.4 g/dl (32.0-36.5); MEAN CORPUSCULAR VOLUME 78.4 fl (80.0-96.0); PLATELET COUNT, AUTOMATED 271 10^3/uL (150-450); RED BLOOD COUNT 5.33 10^6/uL (4.30-6.10); WHITE BLOOD COUNT 10.5 10^3/uL (4.0-10.0)
[2021-11-28 17:47] LABS: ALBUMIN 2.9 GM/DL (3.2-5.2); BILIRUBIN,TOTAL 0.4 MG/DL (0.2-1.0); CALCIUM LEVEL 9.4 MG/DL (8.8-10.2); CREATININE FOR GFR 1.51 MG/DL (0.70-1.30); GLOMERULAR FILTRATION RATE 47.5 (>35); POTASSIUM SERUM 4.7 MEQ/L (3.5-5.1); TOTAL PROTEIN 7.1 GM/DL (6.4-8.2)
== END ==
LOC: M WUC 13:40
PROVIDERS: ATTEND Registered Nurse
DX: N39.0 Urinary tract infection, site not specified (principal)

== ENCOUNTER → 2021-12-09 | Outpatient (CLI) | payer MEDICARE, OTHER ==
[2021-12-09 17:57] LABS: APPEARANCE, URINE MANUAL CLOUDY (CLEAR); COLOR, URINE MANUAL AMBER (YELLOW)
[2021-12-09 17:58] LABS: BILIRUBIN, URINE MANUAL NEGATIVE (NEGATIVE); BLOOD URINE MANUAL POSITIVE (NEGATIVE); GLUCOSE, URINE (UA) MANUAL 4+(1000 MG/DL) mg/dL (NEGATIVE); KETONE, URINE MANUAL NEGATIVE (NEGATIVE); LEUKOCYTE ESTERASE, URINE MAN POSITIVE (NEGATIVE); NITRITE, URINE MANUAL POSITIVE (NEGATIVE); PROTEIN, URINE MANUAL 2+ mg/dL (NEGATIVE); SPECIFIC GRAVITY,URINE MANUAL 1.022 (1.002-1.035); UROBILINOGEN, URINE MANUAL NORMAL (NORMAL)
[2021-12-09 18:16] LABS: BACTERIA, URINE SMALL AMOUNT; HYALINE CAST, URINE NONE SEEN /lpf (0-1); RBC, URINE TNTC /hpf (0-3); SQUAMOUS EPITHELIAL CELL URINE SMALL AMOUNT /hpf (SMALL AMT); WBC, URINE 20-30 /hpf (0-3)
[2021-12-09 18:19] LABS: HEMATOCRIT 39.4 % (42.0-52.0); HEMOGLOBIN 11.6 g/dl (13.5-17.5); MEAN CORPUSCULAR HGB CONC 29.4 g/dl (32.0-36.5); MEAN CORPUSCULAR VOLUME 78.2 fl (80.0-96.0); PLATELET COUNT, AUTOMATED 270 10^3/uL (150-450); RED BLOOD COUNT 5.04 10^6/uL (4.30-6.10); WHITE BLOOD COUNT 8.1 10^3/uL (4.0-10.0)
[2021-12-09 19:07] LABS: ALBUMIN 2.7 GM/DL (3.2-5.2); BILIRUBIN,TOTAL 0.4 MG/DL (0.2-1.0); CALCIUM LEVEL 9.1 MG/DL (8.8-10.2); CREATININE FOR GFR 1.51 MG/DL (0.70-1.30); GLOMERULAR FILTRATION RATE 47.5 (>35); POTASSIUM SERUM 4.8 MEQ/L (3.5-5.1); TOTAL PROTEIN 6.7 GM/DL (6.4-8.2)
== END ==
LOC: M WUC 13:43
PROVIDERS: ATTEND Registered Nurse
DX: N39.0 Urinary tract infection, site not specified (principal)